=== PATIENT | male | born 1940 | race Caucasian/White ===

== ENCOUNTER 2017-09-15 03:07 | Observation (INO) | payer OTHER ==
--- NOTE | 2017-09-15 03:22 | EDPHY ---
H & P Stated Complaint: noisey breath when flat HPI/ROS: HPI CHIEF COMPLAINT: Fatigue, increasing shortness of breath, "noise in my chest" HISTORY OF PRESENT ILLNESS: This patient very pleasant 77-year-old male, significant past medical history for mitral valve regurgitation, he presents to the emergency room at 3:30 a.m. in the morning with shortness of breath. Increasing fatigue, and a noise in the right side of his chest. He describes it as raspy. He denies any chest pain or pleuritic pain. Denies productive cough. He states that he is an avid runner. He runs on average for miles and continue this at 11 minute pace however he states recently he has been having increasing time to run each mile. He gets fatigued and short of breath. Decided come the emergency room consisted around 11 o'clock this evening he was trying to sleep and he noticed an noise in the right side of his chest that he describes as a raspy noise and could not get to sleep. He felt short of breath. Stressed. No chest pain. Decided come the emergency room for evaluation. He denies any history of cardiovascular disease or stroke. Additionally the patient reports intermittent palpitations. Past Medical History: Mitral valve regurgitation Past Surgical History: No recent surgery Social History: Denies daily use drugs alcohol tobacco products. 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 Family History: Noncontributory ROS REVIEW OF SYSTEMS: A comprehensive 10 point review of systems is otherwise negative aside from elements mentioned in the history of present illness. Exam Constitutional appears well nontoxic triage nursing summary reviewed, vital signs reviewed, awake/alert. Eyes normal conjunctivae and sclera, EOMI, PERRLA. HENT normal inspection, atraumatic, moist mucus membranes, no epistaxis, neck supple/ no meningismus, no raccoon eyes. Respiratory clear to auscultation bilaterally, normal breath sounds, no respiratory distress, no wheezing. Cardiovascular significant murmur on exam rate normal, regular rhythm, no edema , distal pulses normal. Gastrointestinal soft, non-tender, no rebound, no guarding, normal bowel sounds, no distension, no pulsatile mass. Genitourinary no CVA tenderness. Musculoskeletal no midline vertebral tenderness, full range of motion, no calf swelling, no tenderness of extremities, no meningismus, good pulses, neurovascularly intact. Skin pink, warm, & dry, no rash, skin atraumatic. Neurologic awake, alert and oriented x 3, AAOx3, moves all 4 extremities equally, motor intact, sensory intact, CN II-XII intact, normal cerebellar, normal vision, normal speech. Psychiatric normal mood/affect. Heme/Lymph/Immune no lymphadenopathy. Differential Diagnosis: Includes but is not limited to in a particular order, pneumonia, pneumothorax, CHF, high cardiac output, acute coronary syndrome, pulmonary embolism. Medical Decision Making: Plan for this patient full cardiac catheterization technician, IV establishment, blood draw, fluid bolus, chest x-ray two view, EKG. Check troponin check D-dimer. Re-evaluation: EKG interpretation by me on record in [employer] system. Impression time of EKG 3:31 a.m., this is sinus rhythm rate of 68. PVC present. First-degree AV block with appear interval 228. Nonspecific intraventricular conduction delay. Q-waves noted lateral leads. Otherwise I do not appreciate acute ischemia. Rather large prominent T-waves in V4 V5 V6. ED x-ray chest two view reviewed. Cardiomegaly present. Prominent aortic knob. Haziness throughout both lung douglas. No old chest x-ray compare this to. D-dimer noted be negative. Troponin negative. BNP slightly elevated. No white count. Will proceed with CT angiogram of his chest to better visualize lung parenchyma. Rule out pulmonary embolism. I Think pulmonary embolism is unlikely given negative D-dimer however he does have shortness of breath, hypoxia, and abnormal chest x-ray. This patient CT scan angiogram chest with IV contrast shows no pulmonary embolism however does show rather large bilateral pleural effusions, interstitial pulmonary edema, cardiomegaly. This is concerning for acute decompensated heart failure. His IV fluids have been stopped. He received approximately 250 cc of normal saline here in the emergency room. I have ordered him 40 mg IV Lasix. The patient be admitted to the hospitalist service for decompensated heart failure. He will need an echocardiogram. Rather large murmur on exam. Updated patient is agreeable for this plan. Source: Patient - Personal History Current Tetanus/Diphtheria Vaccine: Yes Current Tetanus Diphtheria and Acellular Pertussis (TDAP): Yes - Medical/Surgical History Hx Asthma: No Hx Chronic Respiratory Disease: No Hx Diabetes: No Hx Cardiac Disease: Yes Hx Renal Disease: No Hx Cirrhosis: No Hx Alcoholism: No Hx HIV/AIDS: No Hx Splenectomy or Spleen Trauma: No Other PMH: aPPY. sigmoid resection for divertic - Social History Smoking Status: Never smoked Constitutional: Initial Vital Signs Temperature (C) 36.5 C 09/15/17 03:10 Heart Rate 72 09/15/17 03:10 Respiratory Rate 18 09/15/17 03:10 Blood Pressure 140/82 H 09/15/17 03:10 O2 Sat (%) 91 L 09/15/17 03:10 O2 Delivery Mode Nasal Cannula O2 (L/minute) 2 Allergies/Adverse Reactions: No Known Allergies Allergy (Unverified 09/15/17 03:10) Home Medications: Medication Instructions Recorded Aspirin EC [Aspirin EC 81 mg (*)] 81 mg PO DAILY 09/15/17 Carboxymethylcellulose 1% [Refresh 1 drop EACHEYE DAILY PRN 09/15/17 Celluvisc (*)] Cholecalciferol Vit D3 [Vitamin D3 2,000 units PO DAILY 09/15/17 2000 units tab (OTC)] Herbals/Supplements -Info Only 1 ea PO DAILY 09/15/17 Multivitamins [Multivitamin (*)] 1 each PO DAILY 09/15/17 Vitamin B Complex [B Complex] 1 each PO DAILY 09/15/17 Medical Decision Making - Diagnostics Imaging Results: Imaging Impressions Chest/Thorax CTA 09/15/17 04:34 Impression: 1. No evidence of pulmonary embolic disease. 2. Congestive heart failure/pending pulmonary edema. The study was performed as an emergency on-call case and discussed by telephone with Dr. Delacruz at 0540 hours. The final interpretation is concordant with the original communication. - Data Points Laboratory Results: Laboratory Results 09/15/17 03:40 09/15/17 03:40 09/15/17 09/15/17 03:40 03:40 Hemoglobin A1c 5.7 % % (4.0-6.0) Estim Average Glucose 117 mg/dL mg/dL (68-126) Triglycerides 76 mg/dL mg/dL (40-150) Cholesterol 174 mg/dL mg/dL (140-220) Cholesterol Risk Factr 0.6 (0.2-1.0) LDL Cholesterol, Calc 110 mg/dL H mg/dL (80-100) LDL Risk Factor 0.8 (0.2-1.0) VLDL Cholesterol 15 mg/dL mg/dL (8-25) Non-HDL Cholesterol 125 mg/dL mg/dL (90-129) HDL Cholesterol 49 mg/dL mg/dL (40-65) LDL/HDL Ratio 2.24 RATIO RATIO (1.00-3.64) Cholesterol/HDL Ratio 3.55 RATIO RATIO (1.00-4.97) TSH 9.870 uIU/mL H uIU/mL (0.465-4.680) Medications Given: Aspirin Buffered (Aspirin Ec) 81 mg PO DAILY CARMEN Stop: 03/14/18 08:59 Last Admin: 09/15/17 11:12 Dose: Not Given Cholecalciferol (Vitamin D) 2,000 units PO DAILY CARMEN Stop: 03/14/18 08:59 Last Admin: 09/15/17 11:23 Dose: Not Given Enoxaparin Sodium (Lovenox) 40 mg SC DAILY CARMEN Stop: 03/14/18 08:59 Last Admin: 09/15/17 11:12 Dose: Not Given Multivitamins (Tab-A-Iris) 1 each PO DAILY CARMEN Stop: 03/14/18 08:59 Last Admin: 09/15/17 11:23 Dose: Not Given Vitamin B Complex (Vitamin B Complex) 1 ea PO DAILY CARMEN Stop: 03/14/18 08:59 Last Admin: 09/15/17 11:23 Dose: Not Given Discontinued Medications Aspirin (Aspirin) 325 mg PO ONCE ONE Stop: 09/15/17 10:33 Last Admin: 09/15/17 11:11 Dose: 325 mg Diazepam (Valium) 5 mg PO ONCALL ONE Stop: 09/15/17 10:31 Last Admin: 09/15/17 11:11 Dose: 5 mg Diphenhydramine HCl (Benadryl) 25 mg PO ONCALL ONE Stop: 09/15/17 10:31 Last Admin: 09/15/17 11:11 Dose: 25 mg Famotidine (Pepcid) 20 mg PO ONCALL ONE Stop: 09/15/17 10:31 Last Admin: 09/15/17 11:11 Dose: 20 mg Furosemide (Lasix Injection) 40 mg IVP EDNOW ONE Stop: 09/15/17 05:37 Last Admin: 09/15/17 05:42 Dose: 40 mg Sodium Chloride (Ns) 1,000 mls @ 0 mls/hr IV EDNOW ONE; Wide Open PRN Reason: Protocol Stop: 09/15/17 03:35 Last Admin: 09/15/17 04:03 Dose: 250 mls Sodium Chloride (Ns) 1,000 mls @ 0 mls/hr IV ONCALL ONE PRN Reason: TKO Stop: 09/15/17 10:31 Last Admin: 09/15/17 16:25 Dose: Not Given Departure - Departure Disposition: [facility] Acute Clinical Impression: Heart failure Qualifiers: Heart failure type: unspecified heart failure type Heart failure chronicity: acute Qualified Code(s): I50.9 - Heart failure, unspecified Condition: Fair
--- NOTE | 2017-09-15 03:33 | CPEKG ---
Heart Rate: 68 RR Interval: 882 P-R Interval: 228 QRSD Interval: 110 QT Interval: 484 QTC Interval: 515 P [place]: 35 QRS [place]: -30 T Wave [place]: 90 EKG Severity - ABNORMAL ECG - EKG Impression: SINUS RHYTHM EKG Impression: VENTRICULAR PREMATURE COMPLEX EKG Impression: FIRST DEGREE AV BLOCK EKG Impression: NONSPECIFIC INTRAVENTRICULAR CONDUCTION DELAY Electronically Signed By: Brady Gorman 15-Sep-2017 12:12:29
[2017-09-15] MEDS ORDERED: NS 1,000 ML IV ONE ×2 (03:34→10:30)
[2017-09-15 03:53] LABS: % IMMATURE GRANULYOCYTES 0.4 % (0.0-1.1); ABSOLUTE IMMATURE GRANULOCYTES 0.03 10^3/uL (0.00-0.10); ADD DIFF? NO; ADD MORPH? NO; ADD SCAN? NO; ATYPICAL LYMPHOCYTE FLAG 0 (0-99); FRAGMENT RBC FLAG 0 (0-99); HEMATOCRIT 43.9 % (40.0-51.0); HEMOGLOBIN 15.4 g/dL (13.7-17.5); LEFT SHIFT FLG 0 (0-99); LIPEMIA HEMOLYSIS FLAG 90 (0-99); MEAN CELL HEMOGLOBIN 31.6 pg (27.9-34.1); MEAN CELL HEMOGLOBIN CONCENTR. 35.1 g/dL (32.4-36.7); MEAN PLATELET VOLUME 9.6 fL (8.7-11.7); PLATELET CLUMPS FLAG 0 (0-99); PLATELET COUNT 142 10^3/uL (150-400); RED BLOOD CELL COUNT 4.88 10^6/uL (4.40-6.38); RED CELL DISTRIBUTION WIDTH 14.1 % (11.5-15.2)
[2017-09-15 04:02] LABS: INR 1.2 (0.83-1.16); PROTIME(PATIENT) 15.2 SEC (12.0-15.0)
[2017-09-15 04:03] LABS: ALANINE AMINOTRANSFERASE 56 IU/L (21-72); ALBUMIN 3.6 g/dL (3.5-5.0); ALKALINE PHOSPHATASE 76 IU/L (38-126); ANION GAP 3 mEq/L (8-16); APTT 28.6 SEC (23.0-38.0); ASPARTATE AMINOTRANSFERASE 29 IU/L (17-59); BILIRUBIN,TOTAL 0.9 mg/dL (0.1-1.4); BILIRUBIN-CONJUGATED 0.1 mg/dL (0.0-0.5); BILIRUBIN-UNCONJUGATED 0.8 mg/dL (0.0-1.1); CALCIUM 9.3 mg/dL (8.5-10.4); CARBON DIOXIDE 23 mEq/l (22-31); CHLORIDE 106 mEq/L (97-110); CREATININE 1.1 mg/dL (0.7-1.3); GLOMERULAR FILTRATION RATE > 60; GLUCOSE 102 mg/dL (70-100); MAGNESIUM 2.1 mg/dL (1.6-2.3); POTASSIUM 4.5 mEq/L (3.5-5.2); SODIUM 132 mEq/L (134-144); TOTAL PROTEIN 6.2 g/dL (6.3-8.2)
[2017-09-15 04:15] LABS: TROPONIN I 0.018 ng/mL (0.000-0.034)
[2017-09-15] MEDS ORDERED: IOPAMIDOL (ISOVUE 370) 100 ML BTL IV ONE (04:39)
[2017-09-15] MEDS ORDERED: FUROSEMIDE 40 MG/4 ML VIAL IVP ONE (05:36)
[2017-09-15] MEDS ORDERED: ACETAMINOPHEN 325 MG TAB PO PRN (08:18)
[2017-09-15] MEDS ORDERED: ONDANSETRON DISINTEGRATING 4 MG TAB PO PRN (08:18)
[2017-09-15] MEDS ORDERED: ONDANSETRON 4 MG/2 ML VIAL IVP PRN (08:18)
[2017-09-15] MEDS ORDERED: CARBOXYMETHYLCELLULOSE 1% 0.4 ML DROPERETTE EACHEYE PRN (08:20)
[2017-09-15] MEDS ORDERED: Herbals/Supplements -Info Only PO SCH (09:00)
[2017-09-15 09:40] LABS: CHOLESTEROL 174 mg/dL (140-220); CHOLESTEROL/HDL RATIO 3.55 RATIO (1.00-4.97); HIGH DENSITY LIPOPROTEIN 49 mg/dL (40-65); LDL/HDL RATIO 2.24 RATIO (1.00-3.64); LOW DENSITY LIPOPROTEIN 110 mg/dL (80-100); NON-HIGH DENSITY LIPOPROTEIN 125 mg/dL (90-129); TRIGLYCERIDE 76 mg/dL (40-150); VERY LOW DENSITY LIPOPROTEINS 15 mg/dL (8-25)
[2017-09-15] MEDS ORDERED: diphenhydrAMINE 25 MG CAP PO ONE (10:30)
[2017-09-15] MEDS ORDERED: TEMAZEPAM 15 MG CAP PO PRN (10:30)
[2017-09-15] MEDS ORDERED: FAMOTIDINE 20 MG TAB PO ONE (10:30)
[2017-09-15] MEDS ORDERED: NITROGLYCERIN 0.4 MG BTL SL PRN (10:30)
[2017-09-15] MEDS ORDERED: DIAZEPAM 5 MG TAB PO ONE (10:30)
[2017-09-15] MEDS ORDERED: NS 1,000 ML IV SCH (10:30)
[2017-09-15] MEDS ORDERED: ASPIRIN 325 MG TAB PO ONE (10:32)
[2017-09-15 10:56] LABS: HEMOGLOBIN A1C 5.7 % (4.0-6.0)
[2017-09-15] MEDS: ENOXAPARIN 40 MG/0.4 ML SYR SC SCH (11:12)
[2017-09-15] MEDS: ASPIRIN EC 81 MG TAB PO SCH (11:12)
[2017-09-15] MEDS: VITAMIN B COMPLEX 1 EA CAP/TAB PO SCH (11:23)
[2017-09-15] MEDS: MULTIVITAMINS 1 EACH TAB PO SCH (11:23)
[2017-09-15] MEDS: CHOLECALCIFEROL VIT D3 2,000 UNITS TAB/CAP PO SCH (11:23)
--- NOTE | 2017-09-15 11:25 | CPEKG ---
Heart Rate: 63 RR Interval: 952 P-R Interval: 228 QRSD Interval: 108 QT Interval: 428 QTC Interval: 439 P [place]: 64 QRS [place]: -26 T Wave [place]: 67 EKG Severity - ABNORMAL ECG - EKG Impression: SINUS RHYTHM EKG Impression: FIRST DEGREE AV BLOCK EKG Impression: PROBABLE LEFT VENTRICULAR HYPERTROPHY Electronically Signed By: Brady Gorman 15-Sep-2017 12:12:40
[2017-09-15 12:22] LABS: COLOR YELLOW; LEUKOCYTE ESTERASE,URINE NEGATIVE (NEGATIVE); NITRITE,URINE NEGATIVE (NEGATIVE)
[2017-09-15] MEDS ORDERED: MIDAZOLAM 2 MG/2 ML VIAL ONE ×2 (12:24→13:41)
[2017-09-15] MEDS ORDERED: fentaNYL 100 MCG/2 ML INJ ONE ×2 (12:24→13:40)
--- NOTE | 2017-09-15 13:06 | PDPROPOC ---
Sedation Plan of Care Sedation Plan of Care: vital signs stable, mental status noted ASA Classification: ASA 2 Planned drugs: fentanyl, midazolam Mallampati Score: Class 2 Mallampati Reference Image: Patient passed 3-3-2 rule?: Yes
--- NOTE | 2017-09-15 13:06 | PDHPUP ---
History & Physical Update H&P update statement: This history and physical update is based on an assessment of the patient which was completed after admission or registration (within 24 hours), but prior to the surgery/procedure. H&P update: H&P reviewed & patient examined, no change in patient's condition since H&P completed
[2017-09-15] MEDS ORDERED: LIDOCAINE 1% 300 MG/30 ML SDV ONE (13:40)
[2017-09-15] MEDS ORDERED: IOPAMIDOL (ISOVUE-370) 150 ML BTL IV ONE (13:41)
[2017-09-15] MEDS ORDERED: VERAPAMIL 5 MG/2 ML VIAL ONE (13:47)
[2017-09-15] MEDS ORDERED: HEPARIN 10,000 UNIT/10 ML MDV ONE (13:47)
[2017-09-15] MEDS ORDERED: NITROGLYCERIN 1,500 MCG/15 ML VIAL MISC ONE (14:40)
--- NOTE | 2017-09-15 15:07 | PDGENHP ---
History and Physical - Chief Complaint Acute shortness of breath - History of Present Illness 77-year-old male presents with acute shortness of breath with associated fatigue and "noise "located in his right chest, characterized as raspy, with onset of symptoms around 3:30 a.m. on the morning of presentation, awakening him from sleep. The patient also notes recent palpitations as well as reduction in exercise tolerance, occurring several days ago, and duration ongoing during exertion. He otherwise denies chest pain, edema, or recent illness. History Information - Allergies/Home Medication List Allergies/Adverse Reactions: No Known Allergies Allergy (Unverified 09/15/17 03:10) Home Medications: Aspirin EC [Aspirin EC 81 mg (*)] 81 mg PO DAILY 09/15/17 [Last Taken 09/14/17] Carboxymethylcellulose 1% [Refresh Celluvisc (*)] 1 drop EACHEYE DAILY PRN 09/15 [Last Taken Unknown] Cholecalciferol Vit D3 [Vitamin D3 2000 units tab (OTC)] 2,000 units PO DAILY [Last Taken 09/14/17] Herbals/Supplements -Info Only 1 ea PO DAILY 09/15/17 [Last Taken Unknown] Multivitamins [Multivitamin (*)] 1 each PO DAILY 09/15/17 [Last Taken 09/14/17] Vitamin B Complex [B Complex] 1 each PO DAILY 09/15/17 [Last Taken 09/14/17] I have personally reviewed and updated: family history, medical history, social history, surgical history Past Medical History: Mitral valve regurgitation. Diverticulitis - Past Medical History hyperlipidemia - Surgical History Reports: appendectomy Additional surgical history: sigmoid colectomy - Social History Smoking Status: Never smoked Alcohol Use: Occasionally (no hx of withdraw) Drug Use: None Additional social history: avid runner Review of Systems Review of Systems: ROS: 10pt was reviewed & negative except for what was stated in HPI & below Cardiac: Reports: palpitations Respiratory: Reports: shortness of breath Physical Exam Physical Exam: Temp Pulse Resp BP Pulse Ox 36.4 C 67 14 109/69 92 09/15/17 12:05 09/15/17 12:05 09/15/17 12:05 09/15/17 12:05 09/15/17 12:05 Constitutional: no apparent distress, appears nourished, not in pain Eyes: PERRL, anicteric sclera, EOMI Ears, Nose, Mouth, Throat: moist mucous membranes, hearing normal, ears appear normal, no oral mucosal ulcers Cardiovascular: systolic murmur (III/ apex w/ increase on deep inspiration), other (intermittent irregular beats), No irregularly irregular, No tachycardia, No edema Respiratory: no respiratory distress, no rales or rhonchi, clear to auscultation Gastrointestinal: normoactive bowel sounds, soft, non-tender abdomen, no palpable masses Skin: warm, normal color, no rashes or abrasions, no fluctuance, no induration, No mottled Neurologic: AAOx3, sensation intact bilaterally, No weakness Psychiatric: interacting appropriately, not anxious, not encephalopathic, thought process linear Lab Data & Imaging Review 09/15/17 03:40 09/15/17 03:40 WBC 7.76 10^3/uL (3.80-9.50) 09/15/17 03:40 RBC 4.88 10^6/uL (4.40-6.38) 09/15/17 03:40 Hgb 15.4 g/dL (13.7-17.5) 09/15/17 03:40 Hct 43.9 % (40.0-51.0) 09/15/17 03:40 MCV 90.0 fL (81.5-99.8) 09/15/17 03:40 MCH 31.6 pg (27.9-34.1) 09/15/17 03:40 MCHC 35.1 g/dL (32.4-36.7) 09/15/17 03:40 RDW 14.1 % (11.5-15.2) 09/15/17 03:40 Plt Count 142 10^3/uL (150-400) L 09/15/17 03:40 MPV 9.6 fL (8.7-11.7) 09/15/17 03:40 Neut % (Auto) 68.9 % (39.3-74.2) 09/15/17 03:40 Lymph % (Auto) 18.4 % (15.0-45.0) 09/15/17 03:40 [place] % (Auto) 10.2 % (4.5-13.0) 09/15/17 03:40 Eos % (Auto) 1.8 % (0.6-7.6) 09/15/17 03:40 Baso % (Auto) 0.3 % (0.3-1.7) 09/15/17 03:40 Nucleat RBC Rel Count 0.0 % (0.0-0.2) 09/15/17 03:40 Absolute Neuts (auto) 5.35 10^3/uL (1.70-6.50) 09/15/17 03:40 Absolute Lymphs (auto) 1.43 10^3/uL (1.00-3.00) 09/15/17 03:40 Absolute Monos (auto) 0.79 10^3/uL (0.30-0.80) 09/15/17 03:40 Absolute Eos (auto) 0.14 10^3/uL (0.03-0.40) 09/15/17 03:40 Absolute Basos (auto) 0.02 10^3/uL (0.02-0.10) 09/15/17 03:40 Absolute Nucleated RBC 0.00 10^3/uL (0-0.01) 09/15/17 03:40 Immature Gran % 0.4 % (0.0-1.1) 09/15/17 03:40 Immature Gran # 0.03 10^3/uL (0.00-0.10) 09/15/17 03:40 PT 15.2 SEC (12.0-15.0) H 09/15/17 03:40 INR 1.20 (0.83-1.16) H 09/15/17 03:40 APTT 28.6 SEC (23.0-38.0) 09/15/17 03:40 D-Dimer 0.31 ug/mLFEU (0.00-0.50) 09/15/17 03:40 Sodium 132 mEq/L (134-144) L 09/15/17 03:40 Potassium 4.5 mEq/L (3.5-5.2) 09/15/17 03:40 Chloride 106 mEq/L (97-110) 09/15/17 03:40 Carbon Dioxide 23 mEq/l (22-31) 09/15/17 03:40 Anion Gap 3 mEq/L (8-16) L 09/15/17 03:40 BUN 24 mg/dL (7-23) H 09/15/17 03:40 Creatinine 1.1 mg/dL (0.7-1.3) 09/15/17 03:40 Estimated GFR > 60 09/15/17 03:40 Glucose 102 mg/dL (70-100) H 09/15/17 03:40 Hemoglobin A1c 5.7 % (4.0-6.0) 09/15/17 03:40 Estim Average Glucose 117 mg/dL (68-126) 09/15/17 03:40 Calcium 9.3 mg/dL (8.5-10.4) 09/15/17 03:40 Magnesium 2.1 mg/dL (1.6-2.3) 09/15/17 03:40 Total Bilirubin 0.9 mg/dL (0.1-1.4) 09/15/17 03:40 Conjugated Bilirubin 0.1 mg/dL (0.0-0.5) 09/15/17 03:40 Unconjugated Bilirubin 0.8 mg/dL (0.0-1.1) 09/15/17 03:40 AST 29 IU/L (17-59) 09/15/17 03:40 ALT 56 IU/L (21-72) 09/15/17 03:40 Alkaline Phosphatase 76 IU/L (38-126) 09/15/17 03:40 Troponin I 0.018 ng/mL (0.000-0.034) 09/15/17 03:40 NT-Pro-B Natriuret Pep 705 pg/mL (0-450) H 09/15/17 03:40 Total Protein 6.2 g/dL (6.3-8.2) L 09/15/17 03:40 Albumin 3.6 g/dL (3.5-5.0) 09/15/17 03:40 Triglycerides 76 mg/dL (40-150) 09/15/17 03:40 Cholesterol 174 mg/dL (140-220) 09/15/17 03:40 Cholesterol Risk Factr 0.6 (0.2-1.0) 09/15/17 03:40 LDL Cholesterol, Calc 110 mg/dL (80-100) H 09/15/17 03:40 LDL Risk Factor 0.8 (0.2-1.0) 09/15/17 03:40 VLDL Cholesterol 15 mg/dL (8-25) 09/15/17 03:40 Non-HDL Cholesterol 125 mg/dL (90-129) 09/15/17 03:40 HDL Cholesterol 49 mg/dL (40-65) 09/15/17 03:40 LDL/HDL Ratio 2.24 RATIO (1.00-3.64) 09/15/17 03:40 Cholesterol/HDL Ratio 3.55 RATIO (1.00-4.97) 09/15/17 03:40 Lipase 313 IU/L (23-300) H 09/15/17 03:40 TSH 9.870 uIU/mL (0.465-4.680) H 09/15/17 03:40 Urine Color YELLOW 09/15/17 11:35 Urine Appearance CLEAR 09/15/17 11:35 Urine pH 5.0 (5.0-7.5) 09/15/17 11:35 Ur Specific [place] 1.014 (1.002-1.030) 09/15/17 11:35 Urine Protein NEGATIVE (NEGATIVE) 09/15/17 11:35 Urine Ketones NEGATIVE (NEGATIVE) 09/15/17 11:35 Urine Blood NEGATIVE (NEGATIVE) 09/15/17 11:35 Urine Nitrate NEGATIVE (NEGATIVE) 09/15/17 11:35 Urine Bilirubin NEGATIVE (NEGATIVE) 09/15/17 11:35 Urine Urobilinogen NEGATIVE EU (0.2-1.0) 09/15/17 11:35 Ur Leukocyte Esterase NEGATIVE (NEGATIVE) 09/15/17 11:35 Urine Glucose NEGATIVE (NEGATIVE) 09/15/17 11:35 Visualized and Interpreted Chest x-ray results: Yes Chest X-Ray results: other (Interstitial lung markings bilaterally with effusions) Visualized and Interpreted EKG results: Yes EKG Interpretation: Positive for: other (Intraventricular conduction delay with normal sinus mechanism and PVCs) Assessment & Plan Assessment: 77-year-old male presenting with acute diastolic CHF exacerbation in the setting of mitral valve regurgitation Plan: 1. Acute diastolic congestive heart failure exacerbation. Acute, new problem this provider, further workup indicated. Evidenced by bilateral interstitial markings and pleural effusions with BNP of 700, most likely secondary to mitral valvular abnormalities -discussed with Dr. Grace Segal, she has read the patient's initial echocardiogram, she recommends transesophageal echocardiogram to further define patient's leaflet morphology -cardiothoracic surgery consultation to follow -continue dosing Lasix, after load reduction with HEATHER-inhibitor per Dr. Segal, start in AM -continue monitoring serum sodium level and potassium, creatinine 2. Hyponatremia. Acute, secondary to CHF exacerbation, continue monitor while diuresing 3. Mitral valve regurgitation. Getting transesophageal echocardiogram to further characterize -severe, getting CT surg eval -afterload reduction -cardiac cath w/o obstructive CAD 4. Hyperlipidemia. Reviewed outside records including 06/03/2009 LDL level of 146 , will require coronary artery risk stratification prior to undergoing surgery Diet. Regular Prophylaxis. High risk patient, Lovenox 40 Code. Full Disposition. Anticipated discharge is 09/16, but the patient may require inpatient admission for cardiothoracic surgery, pending workup as outlined above.
[2017-09-15] MEDS ORDERED: ATROPINE SULFATE 1 MG/10 ML SYR IVP PRN (15:33)
--- NOTE | 2017-09-15 15:33 | PDDXCAT ---
Diagnostic Cath Note - . Date: 09/15/17 In House Cra: Luzma Indication: other (severe MR; pre op cor angiogram) - Procedure Access: right wrist Procedure: left heart catheterization, coronary angiography, left ventriculogram - Materials Left Heart Cath size: 5F Left Heart Cath materials: JL4.0, JR4.0 - Findings-Left Heart Catheterization LM: normal LAD: minimal proximal plaque. 2 large Diagonals without flow limiting disease LCX: large branching OM; no sig CAD RCA: dominant. No sig CAD EDP: 16 LVEF: 55; severe MR with complete opacification of severely dilated LA Wall motion: normal - Findings-Right Heart Catheterization AO: 108/60 Complications: none Estimated blood loss: <50ml Closure method: TR Band Assessment: No significant CAD. Severe MR Plan: CT surgery consultation Patient Problems: Problems Problem Status Onset chronic disease mgmt/transitional care Acute Heart failure Acute
--- NOTE | 2017-09-15 17:08 | GCON ---
[f rep st] CONSULTATION CARDIOLOGY CONSULT DATE OF CONSULTATION: 09/15/2017 CHIEF COMPLAINT: Shortness of breath. HISTORY OF PRESENT ILLNESS: We were asked by Dr. Nuñez to visit with the patient. The patient is a pleasant 77-year-old male with a known history of mitral regurgitation. He tells me he had an echoc ardiogram, performed for a cardiac murmur heard on exam back in June in the [facility]. We do n ot have this report. He was told that his mitral valve was regurgitant but not quite ready for surgi monroe intervention. Otherwise, he has no significant past medical history. He presented to the ER yes terday evening with 2 weeks of exertional intolerance and then a sensation of raspiness and mild shor tness of breath when lying on his right side. He has also had some palpitations at rest, but no sync ope. He has not had lower extremity edema or angina. BNP is slightly elevated and chest CT showed v olume overload. He was treated with IV Lasix and admitted for further evaluation. He had a signific ant murmur on exam. Today he reports feeling fairly well, again reiterating that it has really just been a decline in his ability to run over the past several days that has worried him. REVIEW OF SYSTEMS: A full 10-point review of systems was performed and is otherwise negative except that which is outlined in the history of present illness. ALLERGIES: No known drug allergies. PAST MEDICAL HISTORY: Mitral regurgitation. PAST SURGICAL HISTORY: Appendectomy and sigmoid resection for diverticulitis. OUTPATIENT MEDICATIONS: Aspirin 81 mg daily and vitamin supplements. 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 He does not smoke cigarettes. He drin ks alcohol in moderation. He is . FAMILY HISTORY: Unknown on his father's side. His grandmother of a stroke. PHYSICAL EXAM: VITAL SIGNS: Blood pressure is 143/78, heart rate 66, oxygen saturation 92% on room air. He is afebrile. Respiratory rate is 18. GENERAL: Well-appearing older male in no acute distr ess. HEENT: Sclerae are clear and free of jaundice. Mucous membranes are moist. CARDIOVASCULAR: JVP is approximately 12 cm of water. Regular rate and rhythm with a harsh holosystolic murmur heard throughout the precordium. The PMI is prominent and slightly laterally displaced. There is no S3 or S4. LUNGS: Clear to auscultation bilaterally without wheezes, rhonchi, or rales. ABDOMEN: Soft, nontender, nondistended without bruits, masses, or hepatosplenomegaly. EXTREMITIES: Warm and well p erfused without cyanosis, clubbing, or edema. NEURO: Alert and oriented x3 without gross focal neur ological deficits. Appropriate mood and affect. LABORATORY DATA: CBC is essentially normal except for platelets of 142. D-dimer is negative. INR i s 1.2. Sodium 132, potassium 4.5, chloride 23, BUN 24, creatinine 1.1, glucose 102. Hemoglobin A1c is pending. Calcium 9.3, magnesium 2.1. LFTs are normal. Troponin is negative x1. BNP is 705, tot al protein 62. LDL cholesterol 110. Lipase is 313. TSH 9.87. EKG reviewed by me: Normal sinus rhythm, PVC. Nonspecific intraventricular conduction delay. First -degree AV block. Bedside echo preliminarily: Dilated LV. Normal LV systolic function. Severe mitral regurgitation t hat appears to be related to posterior leaflet flail. Chest x-ray reviewed by me: Cardiomegaly, diffuse ground-glass attenuation. Small bilateral pleural effusions. Chest CT: No pulmonary embolism. Findings consistent with congestive heart failure. ASSESSMENT AND PLAN: A 77-year-old male with severe mitral regurgitation that is symptomatic. This appears to be due to flail posterior mitral valve leaflet. 1. Severe mitral regurgitation: He has had a decrease in exercise tolerance, his left ventricular i s enlarged. He does require surgical repair or replacement in the near future. I had a long discuss ion with him about the preparation for that, including transesophageal echocardiogram and left heart catheterization. This will be scheduled for later today. He is willing to proceed. He would like t o speak with our surgeon, Dr. Humphrey Sage. However, he is also interested in a 2nd opinion at the [facility]. He has received 1 dose of Lasix. I would hold on further diuretics until after his angiogram. I would also start an angiotensin-converting enzyme inhibitor tomorrow if his renal funct ion is stable given his mild hypertension and the need for afterload reduction in the setting of melissa re mitral regurgitation. 2. Elevated TSH. This can be followed up as an outpatient. Thank you for allowing us to participate in the patient's care. We will follow with you. /[id number]/[id number]
--- NOTE | 2017-09-15 17:17 | ECHO ---
[email or web address] [address] [address] Main: [phone] Fax: Transthoracic Echocardiogram Name: CHELE FUNES MR#: [id number] Study Date: 09/15/2017 Study Time: 09:14 AM Date of : 1940 Age: 77 year(s) Height: ( ) Weight: ( ) BSA: Gender: Male Examination: Echo Indication: Eval EF Image Quality: Contrast: Requested by: Brady Nuñez BP: 143 mmHg/78 mmHg Heart Rate: Rhythm: Indication: Eval EF Procedure Staff Informatics Application Analyst: Omaira Rowell Reading Physician: Grace Segal Requesting Provider: Conclusions: Moderately to severely dilated left ventricle. Normal global systolic LV function. The ejection fraction is estimated to be 60-65 %. Normal size right ventricle. The left atrium is severely dilated. Severe mitral valve regurgitation is present. The posterior mitral leaflet is prolapsing and appears to be flail.. Mild tricuspid regurgitation is present. The pulmonary artery pressure is mildly increased. RVSP is 46mmHG. . There is no previous echocardiogram for comparison. Measurements: Chambers Valvular Assessment AV/MV Valvular Assessment TV/PV Normal Normal Normal Name Value Range Name Value Range Name Value Range EF Range: 60-65 % Continued Measurements: Findings: Left Ventricle: Moderately to severely dilated left ventricle. Normal global systolic LV function. The ejection fraction is estimated to be 60-65 %. Right Ventricle: Normal size right ventricle. Left Atrium: The left atrium is severely dilated. Patient: CHELE FUNES Study Date: 09/15/2017 Page 1 of 2 09:14 AM Right Atrium: The right atrium is normal in size. Mitral Valve: Severe mitral valve regurgitation is present. The posterior mitral leaflet is prolapsing and appears to be flail.. Aortic Valve: The aortic valve is normal in appearance and function. Tricuspid Valve: The tricuspid valve is normal in appearance and function. Mild tricuspid regurgitation is present. The pulmonary artery pressure is mildly increased. RVSP is 46mmHG. . Pulmonic Valve: The pulmonic valve is normal in appearance and function. Trivial pulmonic valve regurgitation. Aorta: The aorta is normal. Pericardium: No pericardial effusion. (No Signature Object) Patient: CHELE FUNES Study Date: 09/15/2017 Page 2 of 2 09:14 AM [id number]
--- NOTE | 2017-09-15 17:19 | ECHO ---
[email or web address] [address] [address] Main: [phone] Fax: Transesophageal Echocardiography Name: CHELE FUNES MR#: [id number] Study Date: 09/15/2017 Study Time: 01:43 PM Date of : 1940 Age: 77 year(s) Height: ( ) Weight: ( ) BSA: Gender: Male Examination: MONICA Indication: Image Quality: Contrast: Requested by: Grace Segal Heart Rate: Rhythm: BP: / Procedure Staff Obstetric Assistant: Omaira Pennington Physician: Grace Segal Requesting Provider: MONICA Exam Details Measurements: Chambers Valvular Assessment AV/MV Valvular Assessment TV/PV Normal Normal Normal Name Value Range Name Value Range Name Value Range Additional Measurements: Findings: Left Ventricle: Normal global systolic LV function. Left Atrium: An agitated saline study was performed and was negative for intracardiac shunting. Left Atrial Appendage: No thrombus in left appendage. Mitral Valve: There is flow reversal in the pulmonary veins consistent with significant mitral regurgitation. There is a flail leaflet of the posterior mitral leaflet, P2 segment. Severe mitral regurgitation anteriorly directed from the posterior mitral leaflet prolapse. Aortic Valve: The aortic valve is tri-leaflet. There is no aortic valve regurgitation. Tricuspid Valve: The tricuspid valve appears normal. Patient: CHELE FUNES Study Date: 09/15/2017 Page 1 of 2 01:43 PM l1n (No Signature Object) Patient: CHELE FUNES Study Date: 09/15/2017 Page 2 of 2 01:43 PM [id number]
[2017-09-16 05:07] LABS: ANION GAP 12 mEq/L (8-16); CALCIUM 8.5 mg/dL (8.5-10.4); CARBON DIOXIDE 27 mEq/l (22-31); CHLORIDE 104 mEq/L (97-110); CREATININE 1.3 mg/dL (0.7-1.3); GLOMERULAR FILTRATION RATE 54; GLUCOSE 85 mg/dL (70-100); MAGNESIUM 2.1 mg/dL (1.6-2.3); POTASSIUM 4.2 mEq/L (3.5-5.2); SODIUM 143 mEq/L (134-144)
[2017-09-16 05:57] VITALS: O2SAT 95
[2017-09-16 08:04] VITALS: BP 114/73; PULSE 64; RESP 13; TEMP 97.4
[2017-09-16] MEDS ORDERED: FUROSEMIDE 40 MG TAB PO SCH (09:00)
[2017-09-16] MEDS ORDERED: LISINOPRIL 5 MG TAB PO SCH (09:00)
--- NOTE | 2017-09-16 09:43 | ASMTCMCOM ---
CM Note CM Note Notes: 09/16/2017 Case Management Note Met w/ pt. AMANDA signed. Pt recently retired in May 2017. Reports enjoying custodial. Lives with . Daughter and grandchildren in the area. Micki [phone]. No Case Management d/c needs identified d/t pt marital status, age and activity levels prior to admission. No therapy evals ordered. Case Management d/c poc: Home independent when medically stable with follow up as directed. Case Management available if needs change. Date Signed: 09/16/2017 09:42 AM Electronically Signed By:Violette Patel RN
[2017-09-16] MEDS: ASPIRIN EC 81 MG TAB PO SCH (09:50)
[2017-09-16] MEDS: VITAMIN B COMPLEX 1 EA CAP/TAB PO SCH (09:50)
[2017-09-16] MEDS: CHOLECALCIFEROL VIT D3 2,000 UNITS TAB/CAP PO SCH (09:50)
[2017-09-16] MEDS: MULTIVITAMINS 1 EACH TAB PO SCH (09:51)
[2017-09-16] MEDS: ENOXAPARIN 40 MG/0.4 ML SYR SC SCH (09:52)
--- NOTE | 2017-09-16 10:12 | PDCARPN ---
Cardiology Progress Note Assessment/Plan: Assessment/plan: A 77-year-old male with a known history of mitral regurgitation but otherwise no significant medical problems. He was admitted with heart failure. Workup has demonstrated severe mitral regurgitation related to a flail segment of his posterior mitral valve (P2). He has non flow- limiting coronary disease in his LAD. Dyspnea has improved after some Lasix. 1. Severe mitral regurgitation related to flail P2: Dr. Sage will see the patient this morning. He will require surgical mitral valve repair without CABG. I have started low-dose Lasix as well as low-dose lisinopril for afterload reduction and his sleep AHF. Likely surgery will be in the next week or so. 2. Elevated TSH: Follow-up as outpatient. Patient needs a new primary care provider. Patient stable for discharge. Follow-up with CT surgery. 09/16/17 10:37 Subjective: Sarmad denies dyspnea, PND orthopnea. No chest pain. No throat pain post MONICA. Occasional palpitations. Reviewed/Discussed With: family, hospitalist (Dr. Sage and Dr. Nuñez), other Objective: Vital Signs (8 Hrs) Temp Pulse Resp BP Pulse Ox 09/16/17 08:04 36.3 C 64 13 114/73 95 09/16/17 04:00 36.8 C 63 16 116/68 95 Intake/Output (24 Hrs) 09/15/17 09/16/17 09/17/17 05:59 05:59 05:59 Intake Total 650 Output Total 400 Balance 250 Intake: Oral (ml) 400 IV Infused (ml) 250 Output: Urine (ml) 400 Toilet 400 Other: Weight 75.6 kg Number of Voids 3 Toilet 1 Result Diagrams: 09/15/17 03:40 09/16/17 04:25 Telemetry: Sinus rhythm with PVCs ICD10 Worksheet Patient Problems: Problems Problem Status Onset chronic disease mgmt/transitional care Acute Heart failure Acute
[2017-09-16] MEDS ORDERED: FLU VACC QS 2017-18 (3YR+)/PF 0.5 ML SYR (FLUARIX QUAD) IM ONE (12:47)
--- NOTE | 2017-09-16 12:52 | GCON ---
[f rep st] CONSULTATION DATE OF CONSULTATION: 09/16/2017 REFERRING PHYSICIAN: Grace Segal MD IMPRESSION: 1. Severe mitral regurgitation with evidence of ruptured P2 chordae, marked left atrial enlargement and diminished left ventricular function, symptomatic class 2. 2. Status post appendectomy and sigmoid colon resection. RECOMMENDATIONS: This gentleman should undergo elective repair of his mitral valve. His cath reveal ed a 40% LAD lesion which I believe could be left alone. We will review with Interventional Cardiolo gy for their opinion as well. The patient prefers a limited incision, minimally invasive right thora cotomy repair, with femoral artery and vein cannulation. We will obliterate the left atrial appendag e at the time of surgery as well. Prior to surgery, we will perform a 48 hour Holter monitor to rule out any atrial fibrillation. He does have a history of multiple PVCs and has felt irregular heart rh ythms in the past, although no AFib has been documented. I advised him that, should we identify atri al fibrillation, we should do a Maze procedure as well. Overall risk is 1%. Repairability, in my op inion, is approximately 95% based on echo findings. We did discuss options should the repair not be suitable with a valve replacement utilizing bioprosthesis. He is agreeable to that approach. He was offered a repeat visit in the office and will be contacted by my office Monday. CHIEF COMPLAINT: Shortness of breath. 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 " He then presented here with worsening activity level, fatigue, and some shortness of breath with e xertion. He was found to be in class 2 heart failure. He was diuresed, underwent echocardiogram whi ch revealed severe mitral insufficiency with marked left atrial, left ventricle enlargement and filli ng of his pulmonary veins. Cath revealed a 40% LAD lesion. He was referred for surgical interventio n. No atrial fib was identified in the hospital. PAST MEDICAL HISTORY: As stated. REVIEW OF SYSTEMS: A 10-point review was performed and otherwise negative except for chief complaint . PAST SURGICAL HISTORY: Appendectomy and sigmoid resection. MEDICATIONS: On admission were aspirin. Current medications are aspirin, carboxymethylcellulose eye drops, vitamin D, Lasix 20 mg daily, lisinopril 2.5 mg daily, multivitamins, Restoril as well as felipe min B complex. SOCIAL HISTORY: He does not smoke. He is retired. He does drink wine several days a week, 2 glasse s at a time. FAMILY HISTORY: Noncontributory. PHYSICAL EXAMINATION: GENERAL: This is a well-developed, elderly gentleman, very alert, accompanied by his , in no apparent distress. VITAL SIGNS: Blood pressure 114/73, pulse 64, respirations 13 , O2 saturation 95% on room air. Chest x-ray reveals bilateral pulmonary infiltration consistent wit h minimal CHF on admission. CAT scan shows no embolic disease and evidence of congestive heart failu re, as well as cardiomegaly on my review. HEENT: Normocephalic. MARIANN, EOMI. Teeth are in good re pair. NECK: Without bruits. HEART: Rate is regular without murmur, S3 or S4. He does have a murmu r of mitral regurg across the precordium. LUNGS: Clear. ABDOMEN: Soft, nontender. Bowel sounds a re active. RECTAL AND GENITAL: Deferred. EXTREMITIES: Pedal pulses are 2+ without edema or varico sities. Please see cath and echo reports for details. /[id number]/MODL
--- NOTE | 2017-09-16 16:40 | PDDCSUM ---
Discharge Summary Discharge Summary: DISCHARGE SUMMARY FOLLOW-UP ITEMS: Outpatient creatinine BUN and lytes this week Establish care with primary care provider and reassess TSH level DATE OF ADMISSION: 09/15/2017 DATE OF DISCHARGE: 09/16/2017 DISCHARGE DIAGNOSES: 1. Severe mitral regurgitation 2. Acute diastolic congestive heart failure exacerbation 3. Elevated TSH level CONSULTATIONS: Cardiology and cardiothoracic surgery PROCEDURES / IMAGING: Transesophageal echocardiogram demonstrating a flail P2 of the mitral valve with severe regurgitation Cardiac catheterization demonstrating no flow-limiting stenosis Carotid ultrasounds performed prior to discharge CHIEF COMPLAINT: Acute chest congestion SUBJECTIVE: Patient is feeling well at time of discharge, he is ambulating without any exertional symptoms PHYSICAL EXAM ON DISCHARGE: Systolic blood pressure 110, heart rate 60, afebrile overnight, satting well on room air, net even light stay, lungs are clear to auscultation bilaterally, heart rate is regular with regular rhythm, 3/6 systolic murmur at the apex, no lower extremity edema LABS ON DISCHARGE: Potassium 4.2, serum sodium 143, creatinine 1.3, BUN 23, TSH 9.9, LDL 110, hemoglobin A1c 5.7% HOSPITAL COURSE BY PROBLEM: The patient presented with acute chest congestion, recent exertional shortness of breath and reduction in exercise tolerance, secondary to severe mitral regurgitation with resultant acute diastolic congestive heart failure exacerbation, evidenced by interstitial edema on chest x-ray as well as elevated BNP. This was also very to a flail P2 of the mitral valve, and this requires surgical repair without CABG. The patient was seen in consultation by Dr. Grace Segal from Cardiology, Dr. Humphrey Sage from Cardiothoracic surgery, and was recommended that the patient initiated on low-dose Lasix as well as low- dose lisinopril for afterload reduction, with outpatient follow-up and then scheduled mitral valve replacement surgery. It was also noted that the patient had an elevated TSH level, it is unclear whether this is clinically significant in the setting of his recent reduction in exercise tolerance. I recommended the patient establish care with a primary care provider tabs TSH level recheck, consider Synthroid therapy, and the patient can be directed to do so after his follow-up appointment with Dr. Grace Segal next week. DISCHARGE MEDICATIONS: Please see official discharge medication reconciliation sheet in chart , lisinopril 2.5 mg daily, Lasix 40 mg daily. DISCHARGE INSTRUCTIONS: Please have outpatient labs this week, and follow up with Dr. Segal thereafter.
[2017-09-17] MEDS ORDERED: FUROSEMIDE 20 MG TAB PO SCH (09:00)
[2017-09-17] MEDS ORDERED: LISINOPRIL 2.5 MG TAB PO SCH (09:00)
== END 2017-09-16 14:30 | disposition home or self-care (01) ==
LOC: INTOOBSV 05:59 → F2W 06:52
PROVIDERS: ADMIT Family Medicine; ATTEND Internal Medicine
DX: I50.31 Acute diastolic (congestive) heart failure (principal); I51.1 Rupture of chordae tendineae, not elsewhere classified; I34.0 Nonrheumatic mitral (valve) insufficiency; E87.0 Hyperosmolality and hypernatremia; E78.5 Hyperlipidemia, unspecified; Z23 Encounter for immunization
CPT/HCPCS: 71020; 71275; 90471; 93005; 93306; 93312; 93458; 93880; G0378; 96374; G0008; J1644; J1650; J1940; J2250; J3010; Q9967

== ENCOUNTER → 2017-09-20 | Outpatient (CLI) | payer OTHER | LOC: BHFA 13:00 | PROVIDERS: ATTEND Thoracic Surgery (Cardiothoracic Vascular Surgery) | DX: I48.91 Unspecified atrial fibrillation (principal) ==

== ENCOUNTER 2017-10-02 05:48 | Inpatient (IN) | payer OTHER ==
[2017-10-02] MEDS ORDERED: AMINOCAPROIC ACID 5 GM/20 ML VIAL IV ONE (06:00)
[2017-10-02] MEDS ORDERED: SODIUM BICARBONATE 20 MEQ, LIDOCAINE 1% 10 ML in NORMOSOL-R 1,000 ML MISC ONE (06:00)
[2017-10-02] MEDS ORDERED: CITRATE DEXTROSE SOLN 500 ML BAG MISC ONE (06:00)
[2017-10-02] MEDS ORDERED: INSULIN REGULAR HUMAN 100 UNIT in NS 100 ML IV ONE ×2 (06:00→11:00)
[2017-10-02] MEDS ORDERED: MUPIROCIN 2% 22 GM OINT NS ONE (06:00)
[2017-10-02] MEDS ORDERED: niCARdipine/NACL 200 ML IV SCH (06:00)
[2017-10-02] MEDS ORDERED: PHENYLEPHRINE HCL 50 MG in NS 250 ML IV ONE (06:00)
[2017-10-02] MEDS ORDERED: ceFAZolin 2 GM/SWFI 2 GM/20 ML SYR IVP ONE (06:00)
[2017-10-02] MEDS ORDERED: NOREPINEPHRINE BITARTRATE 16 MG in NS 250 ML IV ONE (06:00)
[2017-10-02] MEDS ORDERED: MANNITOL 25% 12.5 GM/50 ML VIAL IVP ONE (06:00)
[2017-10-02] MEDS ORDERED: LIDOCAINE 1% 2 ML INJ ONE (06:01)
[2017-10-02] MEDS ORDERED: LIDOCAINE 1% 2 ML INJ ID PRN (06:09)
[2017-10-02] MEDS ORDERED: LR 1,000 ML IV ONE (06:09)
[2017-10-02] MEDS ORDERED: PROTAMINE SULFATE 50 MG/5 ML VIAL IVP ONE (06:33)
[2017-10-02] MEDS ORDERED: CALCIUM CHLORIDE 1 GM/10 ML INJ ONE ×3 (06:34→06:36)
[2017-10-02] MEDS ORDERED: MILRINONE/DEXTROSE/100 ML BAG IV ONE (06:34)
[2017-10-02] MEDS ORDERED: AMINOCAPROIC ACID 5 GM/20 ML VIAL ONE ×2 (06:34→06:37)
[2017-10-02] MEDS ORDERED: POTASSIUM Cl (KCl) 20 MEQ/50 ML BAG IV ONE (06:34)
[2017-10-02] MEDS ORDERED: NA BICARBONATE 50 MEQ/50 ML VIAL ONE (06:34)
[2017-10-02] MEDS ORDERED: DOPamine/DEXTROSE/250 ML BAG IV ONE (06:34)
[2017-10-02] MEDS ORDERED: niCARdipine/NACL/200 ML BAG IV ONE (06:35)
[2017-10-02] MEDS ORDERED: AMIODARONE HCL 150 MG/3 ML VIAL ONE ×2 (06:35→06:37)
[2017-10-02] MEDS ORDERED: ADENOSINE 6 MG/2 ML VIAL ONE (06:35)
[2017-10-02] MEDS ORDERED: ALBUMIN 5% 250 ML BOTTLE IV ONE ×2 (06:36→10:11)
[2017-10-02] MEDS ORDERED: HEPARIN 10,000 UNIT/10 ML MDV ONE ×2 (06:36→06:38)
[2017-10-02] MEDS ORDERED: ceFAZolin 1 GM VIAL ONE (06:36)
[2017-10-02] MEDS ORDERED: MAGNESIUM SULFATE 1 GM/2 ML VIAL ONE (06:37)
[2017-10-02] MEDS ORDERED: methylPREDNISolone SOD SUCC 1 GM/8 ML VIAL ONE (06:37)
[2017-10-02] MEDS ORDERED: LIDOCAINE 2% 100 MG/5 ML SYR ONE (06:37)
[2017-10-02] MEDS ORDERED: CITRATE DEXTROSE SOLN 500 ML BAG ONE (06:37)
[2017-10-02] MEDS ORDERED: MIDAZOLAM 2 MG/2 ML VIAL IVP ONE (06:47)
--- NOTE | 2017-10-02 06:47 | PDANEPAE ---
ANE History of Present Illness here for MVR ANE Past Medical History - Cardiovascular History Hx Hypertension: Yes Hx Arrhythmias: No Hx Chest Pain: No Hx Coronary Artery / Peripheral Vascular Disease: No Hx CHF / Valvular Disease: Yes Hx Palpitations: No Cardiovascular History Comment: MVR. CHF - Pulmonary History Hx COPD: No Hx Asthma/Reactive Airway Disease: No Hx Recent Upper Respiratory Infection: No Hx Oxygen in Use at Home: No Hx Sleep Apnea: No Sleep Apnea Screening Result - Last Documented: Positive Pulmonary History Comment: oneal triggers - Neurologic History Hx Cerebrovascular Accident: No Hx Seizures: No Hx Dementia: No - Endocrine History Hx Diabetes: No Hypothyroid: No Hyperthyroid: No Obesity: no - Renal History Hx Renal Disorders: No - Liver History Hx Hepatic Disorders: No - Neurological & Psychiatric Hx Hx Neurological and Psychiatric Disorders: No Neurological / Psychiatric History Comment: hx of depression 1973 - Cancer History Hx Cancer: No - Congenital Disorder History Hx Congenital Disorders: No - GI History Hx Gastrointestinal Disorders: Yes Gastrointestinal History Comment: hx of sigmoid resection 1991. hx of diverticulitis - Other Health History Other Health History: wears glasses - Chronic Pain History Chronic Pain: No - Surgical History Prior Surgeries: appy. sigmoid resection for diverticulitis ANE Review of Systems Review of systems is: negative Review of Systems: - Exercise capacity Exercise capacity: <4 METS METS (RN): 3 METS ANE Patient History - Allergies Allergies/Adverse Reactions: No Known Allergies Allergy (Verified 09/22/17 11:23) - Home Medications Home medications: home medication list seen and reviewed Home Medications: Aspirin EC [Aspirin EC 81 mg (*)] 81 mg PO DAILY 09/15/17 [Last Taken 09/25/17] Carboxymethylcellulose 1% [Refresh Celluvisc (*)] 1 drop EACHEYE DAILY PRN 09/15 [Last Taken Unknown] Cholecalciferol Vit D3 [Vitamin D3 2000 units tab (OTC)] 2,000 units PO DAILY [Last Taken 09/29/17] Herbals/Supplements -Info Only 1 ea PO DAILY 09/15/17 [Last Taken 09/29/17] Multivitamins [Multivitamin (*)] 1 each PO DAILY 09/15/17 [Last Taken 09/29/17] Vitamin B Complex [B Complex] 1 each PO DAILY 09/15/17 [Last Taken 09/29/17] - NPO status NPO Status: no food or drink >8 hours NPO Since - Liquids (Date): 10/01/17 NPO Since - Liquids (Time): 22:00 NPO Since - Solids (Date): 10/01/17 NPO Since - Solids (Time): 22:00 - Anes Hx Anes Hx: no prior problems - Smoking Hx Smoking Status: Never smoked - Family Anes Hx Family Hx Anesthesia Complications: none ANE Labs/Vital Signs - Vital Signs Blood Pressure: 131/74 Heart Rate: 64 Respiratory Rate: 16 O2 Sat (%): 93 Height: 180.34 cm Weight: 75.6 kg ANE Physical Exam - Airway Neck exam: FROM Mallampati Score: Class 1 - Pulmonary Pulmonary: no respiratory distress - Cardiovascular Cardiovascular: regular rate and rhythym - ASA Status ASA Status: III ANE Anesthesia Plan Anesthesia Plan: general endotracheal anesthesia Lines/Monitors: central line, MONICA Specialized Airway: double lumen tube
[2017-10-02] MEDS ORDERED: fentaNYL 250 MCG/5 ML INJ ONE (07:20)
[2017-10-02] MEDS ORDERED: PROPOFOL/EMULSION 500 MG/50 ML BOTTLE IV ONE (07:21)
[2017-10-02] MEDS ORDERED: ISOFLURANE 100 ML BOTTLE IH ONE (09:08)
[2017-10-02] MEDS ORDERED: MAGNESIUM SULF 2 GM/WATER 50 ML BAG IV ONE (10:11)
[2017-10-02] MEDS ORDERED: BUPIVACAINE 0.25% 30 ML SDV ONE (11:52)
[2017-10-02] MEDS ORDERED: fentaNYL 100 MCG/2 ML INJ ONE ×3 (12:02→16:34)
[2017-10-02] MEDS ORDERED: HYDROCODONE/APAP 5/325 TAB PO PRN (13:21)
[2017-10-02] MEDS ORDERED: METOCLOPRAMIDE 10 MG/2 ML VIAL IVP PRN (13:21)
[2017-10-02] MEDS ORDERED: ONDANSETRON 4 MG/2 ML VIAL IVP PRN (13:21)
[2017-10-02] MEDS ORDERED: POTASSIUM Cl (KCl) 50 ML IV PRN (13:21)
[2017-10-02] MEDS ORDERED: BISACODYL 10 MG SUPP PR PRN (13:21)
[2017-10-02] MEDS ORDERED: MAGNESIUM HYDROXIDE 30 ML UDCUP PO PRN (13:21)
[2017-10-02] MEDS ORDERED: SODIUM CL NASAL 45 ML BTL EACHNARE PRN (13:21)
[2017-10-02] MEDS ORDERED: MAGNESIUM SULF 2 GM/WATER 50 ML IV ONE (13:21)
[2017-10-02] MEDS ORDERED: ACETAMINOPHEN 650 MG SUPP PR PRN (13:21)
[2017-10-02] MEDS ORDERED: CEPACOL LOZENGE PO PRN (13:21)
[2017-10-02] MEDS ORDERED: fentaNYL 100 MCG/2 ML INJ IVP PRN (13:21)
[2017-10-02] MEDS ORDERED: MEPERIDINE 25 MG/ML SYR IVP PRN (13:21)
[2017-10-02] MEDS ORDERED: ONDANSETRON DISINTEGRATING 4 MG TAB PO PRN (13:21)
[2017-10-02] MEDS ORDERED: PANTOPRAZOLE SODIUM 40 MG VIAL IVP ONE (13:21)
[2017-10-02] MEDS ORDERED: D50W 25 GM/50 ML SYR IVP PRN (13:21)
[2017-10-02] MEDS ORDERED: LACTULOSE 20 GM/30 ML UDCUP PO PRN (13:21)
[2017-10-02] MEDS ORDERED: CARBOXYMETHYLCELLULOSE 1% 0.4 ML DROPERETTE EACHEYE PRN (13:26)
[2017-10-02] MEDS ORDERED: NS 1,000 ML IV SCH (13:30)
[2017-10-02] MEDS ORDERED: INSULIN REGULAR HUMAN 100 UNIT in NS 100 ML IV SCH (13:30)
[2017-10-02] MEDS ORDERED: ceFAZolin 2 GM/DEXTROSE 100 ML IV SCH (14:00)
[2017-10-02] MEDS ORDERED: fentaNYL 50 MCG PATCH TD SCH (14:15)
--- NOTE | 2017-10-02 14:22 | CPEKG ---
Heart Rate: 74 RR Interval: 811 P-R Interval: 240 QRSD Interval: 116 QT Interval: 440 QTC Interval: 489 P Ronan: 73 QRS Ronan: -73 T Wave Ronan: 91 EKG Severity - ABNORMAL ECG - EKG Impression: SINUS RHYTHM EKG Impression: FIRST DEGREE AV BLOCK EKG Impression: NONSPECIFIC IVCD WITH LAD EKG Impression: ST ELEVATION, PROBABLE INFERIOR INJURY EKG Impression: BORDERLINE R WAVE PROGRESSION, ANTERIOR LEADS Electronically Signed By: Naun Neff 03-Oct-2017 10:42:34
--- NOTE | 2017-10-02 14:25 | GOP ---
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 PROCEDURE PERFORMED: Right mini thoracotomy, mitral valve repair with triangular resection, chordal reconstruction to P2, a #30 Physio annuloplasty ring, and right common femoral artery and vein cannul ation with primary repair. FINDINGS: Patient was noted to have severe mitral insufficiency with markedly dilated left atrium an d left ventricle. He was referred for surgical intervention. DESCRIPTION OF PROCEDURE: He was consented for surgery, brought to the operating room, intubated, an d monitoring lines were placed. A double-lumen endotracheal tube was placed by Anesthesia. His righ t side was slightly elevated. He was prepped and draped in sterile classical manner. A 2 cm incisio n was placed down over the femoral artery and vein, which were large, good quality without plaque. A pursestring suture was placed in both. We then performed a third intercostal space 4 cm incision la teral to the nipple in the anterior axillary line. Soft tissue retractor was placed. With the lung down, we were directly over the hilum of the lung. The pericardium was opened and pericardial stay s utures were placed. He was heparinized. We then proceeded with cannulation of the femoral vein unde r echo guidance with placement of the cannula in the superior vena cava. I then placed the arterial cannula without difficulty with echo guidance, identifying the wire in the descending thoracic aorta. Cardiopulmonary bypass was then begun. An antegrade cardioplegia catheter was placed in the ascend ing aorta and a crossclamp was applied through a separate stab wound incision, arresting the heart. We then developed the transverse sinus and the oblique sinus, developed Sondergaard groove and opened the left atrium, with a transthoracic retractor placed. Good visualization of the valve was noted. He had marked prolapse and rupture of P2 and the first portion of P3. P1 and the distal portion of P3 were otherwise in the normal plane, as was the anterior leaflet. It was a classically myxomatous valve. We then placed circumferential annuloplasty sutures without difficulty for better exposure. I then did a triangular resection involving the medial portion of P2 and the medial portion of P3. I then did [place]-Lionel interrupted closures of the valvulotomy and then did a 4-0 [place]-Lionel cord from P2 t o the anterior papillary muscle. Distention of the ventricle revealed no regurgitation. We then siz ed the patient for a 30 Physio ring, which was secured in place with Cor-Knots. Distention of the ve ntricle revealed no significant regurgitation. There was a small cleft between P1 and P2, which was closed with 4-0 Prolene. We then closed the left atrial appendage from the inside with a double-laye r closure, avoiding circumflex territory. We then closed the left atrium in the standard fashion. C O2 had been infused throughout the procedure. Intermittent ventilation and filling of the heart de-a ired the left chamber. Crossclamp was then removed with suction on the ascending aortic vent. It to ok some time for spontaneous cardiac activity to resume. The patient was paced until that occurred. When no further air was identified, the patient was weaned in Trendelenburg. Echo confirmed no sign ificant regurgitation with good coaptation and no SITA. Heparin was reversed with protamine. The can nula was removed and oversewn. Two ventricular pacing wires were brought out through a separate stab wound incision. The intercostal spaces approximated with large #1 Vicryl sutures to prevent herniat ion and reapproximating the ribs. The remainder of the incisions were closed in a standard fashion. Dressing was applied. Patient was returned to ICU in stable condition. /[id number]/MODL
--- NOTE | 2017-10-02 14:38 | POSTANESTH ---
Post Anesthetic Evaluation Cardiovascular Status: Normal, Stable Respiratory Status: Normal, Stable Level of Consciousness/Mental Status: Can Participate in Eval Pain Control: Adequate, Prn Tx Ordered Nausea/Vomiting Control: Adequate, Prn Tx Ordered Complications Possibly Related to Anesthesia: None Noted
[2017-10-02] MEDS ORDERED: POTASSIUM Cl (KCl) 50 ML IV ONE (15:00)
[2017-10-02] MEDS: ceFAZolin 2 GM/DEXTROSE 100 ML IV SCH ×2 (15:11→21:24)
--- NOTE | 2017-10-02 15:59 | CPEKG ---
Heart Rate: 65 RR Interval: 923 P-R Interval: 252 QRSD Interval: 112 QT Interval: 440 QTC Interval: 458 P [place]: 71 QRS [place]: -70 T Wave [place]: 61 EKG Severity - ABNORMAL ECG - EKG Impression: SINUS RHYTHM EKG Impression: VENTRICULAR PREMATURE COMPLEX EKG Impression: FIRST DEGREE AV BLOCK EKG Impression: NONSPECIFIC IVCD WITH LAD EKG Impression: PROBABLE INFERIOR INFARCT, OLD Electronically Signed By: Naun Neff 03-Oct-2017 10:42:18
[2017-10-02] MEDS ORDERED: LIDOCAINE 1% 300 MG/30 ML SDV ONE (16:34)
[2017-10-02] MEDS ORDERED: IOPAMIDOL (ISOVUE-370) 150 ML BTL IV ONE (16:35)
[2017-10-02] MEDS ORDERED: MIDAZOLAM 2 MG/2 ML VIAL ONE (16:35)
[2017-10-02] MEDS ORDERED: ALBUMIN 5% 500 ML BOTTLE IV ONE (17:02)
[2017-10-02 18:07] LABS: CALCULATED OXYGEN SATURATION 91 % (92-95)
--- NOTE | 2017-10-02 18:26 | CPIP ---
[f rep st] INVASIVE CARDIAC PROCEDURE DATE OF PROCEDURE: 10/02/2017 PROCEDURE: 1. Coronary angiography. 2. Left ventricular end-diastolic pressure. INDICATION: 1. Abnormal EKG suggesting inferior injury postoperatively. 2. Abnormal echocardiogram with inferior hypokinesis postoperatively. ACCESS: Prepped and draped in sterile fashion. 1% lidocaine was used to anesthetize the left inguin al region. A 6-Swiss introducer sheath was placed selectively in the left common femoral artery via modified Seldinger technique. CORONARY ANGIOGRAPHY: A 6-Swiss JL4 was advanced to the left main coronary artery and images obtain ed. The left main coronary artery bifurcated into an LAD and circumflex coronary arteries. The left main coronary artery appeared normal. The left anterior descending coronary artery gave rise to 1 p rominent diagonal branch. The left anterior descending coronary artery had mild diffuse disease thro ughout. In the mid vessel, there is a single discrete 20% to 30% stenosis present. The first diagon al artery had mild luminal irregularities throughout. There was no stenosis greater than 15% to 20%. The circumflex coronary artery is a small vessel. The circumflex coronary artery appeared normal. A 6-Swiss JR4 was advanced to the right coronary artery and images obtained. The right coronary ar crystal is dominant. The right coronary artery is large. The right coronary artery had mild diffuse di sease throughout. There was no stenosis greater than 15% to 20%. LEFT VENTRICULOGRAPHY: A 6-Swiss pigtail catheter was advanced in the left ventricle and pressure o btained. Left ventricular end-diastolic pressure is 15 mmHg. COMPLICATIONS: None. CONCLUSIONS: 1. Mild coronary artery disease without flow limitation. 2. Left ventricular end-diastolic pressure mildly elevated at 15 mmHg. 3. Plan is for medical management. /[id number]/MODL
[2017-10-02] MEDS: ALBUMIN 5% 250 ML IV PRN (20:12)
[2017-10-02] MEDS: SENNOSIDES/DOCUSATE SODIUM TAB PO SCH (21:18)
[2017-10-02] MEDS: MUPIROCIN 2% 22 GM OINT NS SCH (21:26)
[2017-10-02] MEDS ORDERED: ALBUMIN 5% 500 ML IV ONE (22:30)
[2017-10-02 23:28] LABS: HEMATOCRIT 28.3 % (40.0-51.0); HEMOGLOBIN 10.2 g/dL (13.7-17.5); LIPEMIA HEMOLYSIS FLAG 90 (0-99); MEAN CELL HEMOGLOBIN 32.4 pg (27.9-34.1); MEAN CELL VOLUME 89.8 fL (81.5-99.8); PLATELET CLUMPS FLAG 0 (0-99); RED BLOOD CELL COUNT 3.15 10^6/uL (4.40-6.38); RED CELL DISTRIBUTION WIDTH 13.6 % (11.5-15.2)
[2017-10-02 23:29] LABS: PLATELET COUNT 46 10^3/uL (150-400)
[2017-10-03 01:05] LABS: PLATELET ESTIMATE DECREASED (ADEQ)
[2017-10-03 05:01] LABS: % IMMATURE GRANULYOCYTES 0.4 % (0.0-1.1); ABSOLUTE IMMATURE GRANULOCYTES 0.05 10^3/uL (0.00-0.10); ADD DIFF? NO; ADD MORPH? NO; ADD SCAN? NO; ATYPICAL LYMPHOCYTE FLAG 0 (0-99); FRAGMENT RBC FLAG 0 (0-99); HEMATOCRIT 26.8 % (40.0-51.0); HEMOGLOBIN 9.5 g/dL (13.7-17.5); LEFT SHIFT FLG 0 (0-99); LIPEMIA HEMOLYSIS FLAG 90 (0-99); MEAN CELL HEMOGLOBIN 32.2 pg (27.9-34.1); MEAN CELL HEMOGLOBIN CONCENTR. 35.4 g/dL (32.4-36.7); MEAN CELL VOLUME 90.8 fL (81.5-99.8); PLATELET CLUMPS FLAG 0 (0-99); PLATELET COUNT 53 10^3/uL (150-400); RED BLOOD CELL COUNT 2.95 10^6/uL (4.40-6.38); RED CELL DISTRIBUTION WIDTH 13.8 % (11.5-15.2)
[2017-10-03 05:19] LABS: ANION GAP 11 mEq/L (8-16); CALCIUM 7.5 mg/dL (8.5-10.4); CARBON DIOXIDE 24 mEq/l (22-31); CHLORIDE 108 mEq/L (97-110); GLOMERULAR FILTRATION RATE > 60; GLUCOSE 96 mg/dL (70-100); POTASSIUM 4.1 mEq/L (3.5-5.2); SODIUM 143 mEq/L (134-144)
[2017-10-03] MEDS: ceFAZolin 2 GM/DEXTROSE 100 ML IV SCH ×3 (05:32→22:45)
--- NOTE | 2017-10-03 06:31 | SOAPPROG ---
MARIAELENA Progress Note Assessment/Plan: POD #1: Right mini thoracotomy, mitral valve repair with #30 Physio ring, closure left atrial appendage, right common femoral artery/vein cannulation with primary repair Severe MR s/p MV repair - FC out, AL out once off pressors, chest tube to remain on pleurovac - Coumadin, INR goal 2-3, duration 3 months to start - SCDs for DVT prophylaxis, heparin SQ on hold until platelets > 100 - Likely transfer to PCU later today Acute blood anemia with thrombocytopenia - 1U PRBC to be transfused today - Monitor platelets Dilated valvular cardiomyopathy - BB and diuretics when appropriate r/o inferior wall injury - Cath negative for flow-limiting CAD - Repeat 12-lead EKG today Subjective: Denies pain/SOB. Objective: Vital Signs Temp Pulse Resp BP Pulse Ox 37.1 C 66 16 100/42 L 95 10/03/17 06:00 10/03/17 06:00 10/03/17 06:00 10/03/17 06:00 10/03/17 06:00 Laboratory Results 10/03/17 04:30 10/03/17 04:30 10/02/17 10/03/17 10/04/17 05:59 05:59 05:59 Intake Total 3034.5 Output Total 3285 Balance -250.5 Physical Exam - Physical Exam General Appearance: WD/WN, alert, no apparent distress EENT: No scleral icterus (R), No scleral icterus (L) Neck: normal inspection Respiratory: No respiratory distress Cardiac/Chest: regular rate, rhythm Abdomen: non-tender, soft, No distended Skin: normal color, warm/dry Extremities: No pedal edema Neuro/Psych: no motor/sensory deficits, alert, normal mood/affect, oriented x 3 ICD10 Worksheet Patient Problems: Problems Problem Status Onset S/P MVR (mitral valve repair) Acute Mitral insufficiency Chronic Heart failure Acute chronic disease mgmt/transitional care Acute
[2017-10-03] MEDS: HEPARIN 5,000 UNIT/0.5 ML SYR SC SCH ×2 (07:37→14:53)
--- NOTE | 2017-10-03 08:48 | CPEKG ---
Heart Rate: 68 RR Interval: 882 P-R Interval: 236 QRSD Interval: 108 QT Interval: 428 QTC Interval: 456 P [place]: 66 QRS [place]: -62 T Wave [place]: 29 EKG Severity - ABNORMAL ECG - EKG Impression: SINUS RHYTHM EKG Impression: FIRST DEGREE AV BLOCK EKG Impression: LEFT ANTERIOR FASCICULAR BLOCK EKG Impression: LOW VOLTAGE IN FRONTAL LEADS EKG Impression: BORDERLINE R WAVE PROGRESSION, ANTERIOR LEADS Electronically Signed By: Naun Neff 03-Oct-2017 10:42:08
[2017-10-03] MEDS ORDERED: ASPIRIN 81 MG CHEWABLE TAB PO SCH (09:00)
[2017-10-03] MEDS: SENNOSIDES/DOCUSATE SODIUM TAB PO SCH ×2 (09:29→19:46)
[2017-10-03] MEDS: ALBUMIN 5% 250 ML IV PRN (09:30)
[2017-10-03] MEDS: PANTOPRAZOLE SODIUM 40 MG TAB PO SCH (09:30)
[2017-10-03] MEDS: MUPIROCIN 2% 22 GM OINT NS SCH ×2 (09:30→19:44)
[2017-10-03] MEDS: ASPIRIN EC 81 MG TAB PO SCH ×2 (09:31→16:08)
[2017-10-03 09:34] LABS: POTASSIUM 4.2 mEq/L (3.5-5.2)
[2017-10-03] MEDS ORDERED: ALBUMIN 5% 250 ML IV ONE (10:30)
--- NOTE | 2017-10-03 12:50 | ECHO ---
[email or web address] [address] [address] Main: [phone] Fax: Transthoracic Echocardiogram Name: CHELE FUNES MR#: [id number] Study Date: 10/02/2017 Study Time: 03:59 PM Date of : 1940 Age: 77 year(s) Height: 180.3 cm (71 in.) Weight: 75.3 kg (166 lb.) BSA: 1.95 m2 Gender: Male Examination: Echo Indication: Eval LV function post MV repair Image Quality: Contrast: Requested by: Humphrey Sage BP: 100 mmHg/52 mmHg Heart Rate: Rhythm: Indication: Eval LV function post MV repair Procedure Staff Coding Clerk: Omaira Rowell Reading Physician: Yuriy Fulton Requesting Provider: Conclusions: The ejection fraction is estimated to be 40-45 %. LV septal motion consistent with post-op state. LV inferior and inferolateral segments appear hypo/akinetic.. The left atrium is mildly dilated. The right atrium is mildly dilated. An annuloplasty ring is noted in the mitral valve position. Mild tricuspid regurgitation is present. Trivial pulmonic valve regurgitation. Measurements: Chambers Valvular Assessment AV/MV Valvular Assessment TV/PV Normal Normal Normal Name Value Range Name Value Range Name Value Range Ao Rupal (MM): 4.2 cm (2.2 cm-3.7 MV meanP mmHg ( - ) TR Vmax: 2.16 mm/s ( - ) cm) MV PHT: 0.120 s ( - ) TR PGmax: 19 mmHg ( - ) IVSd (2D): 1.1 cm (0.6 cm-1.1 MVA (PHT): 1.8 s ( - ) syst. PAP: 24 mmHg ( - ) cm) LVDd (2D): 6.5 cm (4.2 cm-5.9 cm) LVDs (2D): 4.7 cm (2.1 cm-4 cm) LVPWd (2D): 1.0 cm (0.6 cm-1 cm) LVEF (2D): 52 (>=54 %) EF Range: 40-45 % Continued Measurements: Chambers Valvular Assessment AV/MV Valvular Assessment TV/PV Name Value Name Value Name Value Patient: CHELE FUNES Study Date: 10/02/2017 Page 1 of 2 03:59 PM LADs: 4.7 cm MV DecTime: 394 m/s CVP (est.): 5 mmHg MV VTI: 32.60 cm Findings: Left Ventricle: Moderately dilated left ventricle. The ejection fraction is estimated to be 40-45 %. LV septal motion consistent with post-op state. LV inferior and inferolateral segments appear hypo/akinetic.. Right Ventricle: Normal size right ventricle. Left Atrium: The left atrium is mildly dilated. Right Atrium: The right atrium is mildly dilated. Mitral Valve: There is no mitral valve regurgitation. An annuloplasty ring is noted in the mitral valve position. MV mean PG is 2mmHG.. Aortic Valve: The aortic valve is tri-leaflet. There is no aortic valve regurgitation. Tricuspid Valve: The tricuspid valve appears normal. Mild tricuspid regurgitation is present. Pulmonic Valve: The pulmonic valve is normal in appearance. Trivial pulmonic valve regurgitation. Pericardium: No pericardial effusion. (No Signature Object) Patient: CHELE FUNES Study Date: 10/02/2017 Page 2 of 2 03:59 PM [id number]
[2017-10-03 13:29] LABS: POTASSIUM 3.9 mEq/L (3.5-5.2)
--- NOTE | 2017-10-03 15:57 | ASMTCMCOM ---
CM Note CM Note Notes: 77 year old male admitted for mitral insufficiency S/P MVR. Patient has a hx of CHF. No discharge needs per RN. Home with . Date Signed: 10/03/2017 03:56 PM Electronically Signed By:Karime Machado LCSW
[2017-10-03] MEDS ORDERED: WARFARIN SODIUM 5 MG TAB PO ONE (16:00)
[2017-10-03] MEDS: traMADol 50 MG TAB PO PRN ×2 (16:05→20:45)
[2017-10-04] MEDS: traMADol 50 MG TAB PO PRN ×2 (04:14→08:37)
[2017-10-04 04:21] LABS: % IMMATURE GRANULYOCYTES 0.5 % (0.0-1.1); ABSOLUTE IMMATURE GRANULOCYTES 0.07 10^3/uL (0.00-0.10); ADD DIFF? NO; ADD MORPH? NO; ADD SCAN? NO; ATYPICAL LYMPHOCYTE FLAG 0 (0-99); FRAGMENT RBC FLAG 0 (0-99); HEMATOCRIT 29.2 % (40.0-51.0); HEMOGLOBIN 10.1 g/dL (13.7-17.5); LEFT SHIFT FLG 0 (0-99); LIPEMIA HEMOLYSIS FLAG 90 (0-99); MEAN CELL HEMOGLOBIN 31.6 pg (27.9-34.1); MEAN CELL HEMOGLOBIN CONCENTR. 34.6 g/dL (32.4-36.7); MEAN CELL VOLUME 91.3 fL (81.5-99.8); PLATELET CLUMPS FLAG 0 (0-99); RED CELL DISTRIBUTION WIDTH 14.6 % (11.5-15.2)
[2017-10-04 04:25] LABS: PLATELET COUNT 43 10^3/uL (150-400)
[2017-10-04 04:30] LABS: INR 1.85 (0.83-1.16); PROTIME(PATIENT) 21.4 SEC (12.0-15.0)
[2017-10-04 04:46] LABS: ANION GAP 10 mEq/L (8-16); CALCIUM 7.6 mg/dL (8.5-10.4); CARBON DIOXIDE 25 mEq/l (22-31); CHLORIDE 103 mEq/L (97-110); CREATININE 1.1 mg/dL (0.7-1.3); GLOMERULAR FILTRATION RATE > 60; GLUCOSE 96 mg/dL (70-100); POTASSIUM 4.2 mEq/L (3.5-5.2); SODIUM 138 mEq/L (134-144)
[2017-10-04 04:51] LABS: PLATELET ESTIMATE DECREASED (ADEQ)
--- NOTE | 2017-10-04 07:41 | SOAPPROG ---
SOAP Progress Note Assessment/Plan: POD #2: Right mini thoracotomy, mitral valve repair with #30 Physio ring, closure left atrial appendage, right common femoral artery/vein cannulation with primary repair Severe MR s/p MV repair - Chest tube to remain d/t high output - Coumadin, INR goal 2-3, duration 3 months to start - SCDs for DVT prophylaxis Acute blood anemia with thrombocytopenia - H/H stable s/p 1U PRBC - Platelets lower today - HIT ordered Dilated valvular cardiomyopathy - BB and diuretics when appropriate r/o inferior wall injury - Cath negative for flow-limiting CAD - ST changes likely secondary to vasospasm Subjective: Denies pain/SOB. Objective: Vital Signs Temp Pulse Resp BP Pulse Ox 36.7 C 67 14 115/49 L 93 10/04/17 04:00 10/04/17 04:00 10/04/17 04:00 10/04/17 04:00 10/04/17 04:00 Laboratory Results 10/04/17 04:15 10/04/17 04:15 10/03/17 10/04/17 10/05/17 05:59 05:59 05:59 Intake Total 3034.5 2377.2 Output Total 3285 1510 Balance -250.5 867.2 PT 21.4 SEC (12.0-15.0) H 10/04/17 04:15 INR 1.85 (0.83-1.16) H 10/04/17 04:15 Physical Exam - Physical Exam General Appearance: WD/WN, alert, no apparent distress EENT: No scleral icterus (R), No scleral icterus (L) Neck: normal inspection Respiratory: No respiratory distress Cardiac/Chest: regular rate, rhythm Abdomen: non-tender, soft, No distended Skin: normal color, warm/dry Extremities: No pedal edema Neuro/Psych: no motor/sensory deficits, alert, normal mood/affect, oriented x 3 ICD10 Worksheet Patient Problems: Problems Problem Status Onset S/P MVR (mitral valve repair) Acute Mitral insufficiency Chronic Heart failure Acute chronic disease mgmt/transitional care Acute
[2017-10-04] MEDS: SENNOSIDES/DOCUSATE SODIUM TAB PO SCH ×2 (08:37→21:20)
[2017-10-04] MEDS: ASPIRIN EC 81 MG TAB PO SCH (08:37)
[2017-10-04] MEDS: PANTOPRAZOLE SODIUM 40 MG TAB PO SCH (08:38)
[2017-10-04] MEDS: MUPIROCIN 2% 22 GM OINT NS SCH (08:39)
[2017-10-04] MEDS: POLYETHYLENE GLYCOL 3350 17 GM PKT PO PRN (10:57)
[2017-10-05 05:54] LABS: INR 2.68 (0.83-1.16); PROTIME(PATIENT) 28.8 SEC (12.0-15.0)
[2017-10-05 06:07] LABS: HEMATOCRIT 26.4 % (40.0-51.0); HEMOGLOBIN 9.2 g/dL (13.7-17.5); LIPEMIA HEMOLYSIS FLAG 90 (0-99); MEAN CELL HEMOGLOBIN 31.4 pg (27.9-34.1); MEAN CELL HEMOGLOBIN CONCENTR. 34.8 g/dL (32.4-36.7); MEAN CELL VOLUME 90.1 fL (81.5-99.8); PLATELET CLUMPS FLAG 20 (0-99); RED BLOOD CELL COUNT 2.93 10^6/uL (4.40-6.38)
[2017-10-05 06:11] LABS: PLATELET COUNT 45 10^3/uL (150-400)
--- NOTE | 2017-10-05 06:34 | SOAPPROG ---
MARIAELENA Progress Note Assessment/Plan: POD #3: Right mini thoracotomy, mitral valve repair with #30 Physio ring, closure left atrial appendage, right common femoral artery/vein cannulation with primary repair Severe MR s/p MV repair - Chest tube to remain d/t high output - Coumadin, INR goal 2-3, duration 3 months - will hold today as INR > 2 - SCDs for DVT prophylaxis Acute blood anemia with thrombocytopenia - H/H slightly lower today, no signs of active bleeding, BP stable - Platelets lower today - HIT pending Dilated valvular cardiomyopathy - BB avoided d/t bradycardia, diuretics restarted today r/o inferior wall injury - Cath negative for flow-limiting CAD - ST changes likely secondary to vasospasm and have since resolved Subjective: Denies pain/SOB. Objective: Vital Signs Temp Pulse Resp BP Pulse Ox 36.7 C 66 12 116/54 L 96 10/05/17 04:00 10/05/17 04:00 10/05/17 04:00 10/05/17 04:00 10/05/17 04:00 Laboratory Results 10/05/17 05:35 10/04/17 04:15 10/04/17 10/05/17 10/06/17 05:59 05:59 05:59 Intake Total 2377.2 1300 Output Total 1510 3240 Balance 867.2 -1940 PT 28.8 SEC (12.0-15.0) H 10/05/17 05:35 INR 2.68 (0.83-1.16) H 10/05/17 05:35 Physical Exam - Physical Exam General Appearance: WD/WN, alert, no apparent distress EENT: No scleral icterus (R), No scleral icterus (L) Neck: normal inspection Respiratory: No respiratory distress Cardiac/Chest: regular rate, rhythm Abdomen: non-tender, soft, No distended Skin: normal color, warm/dry Extremities: No pedal edema Neuro/Psych: no motor/sensory deficits, alert, normal mood/affect, oriented x 3 ICD10 Worksheet Patient Problems: Problems Problem Status Onset S/P MVR (mitral valve repair) Acute Mitral insufficiency Chronic Heart failure Acute chronic disease mgmt/transitional care Acute
[2017-10-05] MEDS: SENNOSIDES/DOCUSATE SODIUM TAB PO SCH ×2 (08:15→21:51)
[2017-10-05] MEDS: FUROSEMIDE 40 MG TAB PO SCH (08:15)
[2017-10-05] MEDS: POTASSIUM CL 20 MEQ TAB PO SCH (08:15)
[2017-10-05] MEDS: PANTOPRAZOLE SODIUM 40 MG TAB PO SCH (08:15)
[2017-10-05] MEDS ORDERED: VITAMIN B COMPLEX 1 EA CAP/TAB PO SCH (09:00)
[2017-10-05] MEDS ORDERED: Herbals/Supplements -Info Only PO SCH (09:00)
[2017-10-05] MEDS: VITAMIN B COMPLEX 1 EA CAP/TAB PO SCH (09:08)
[2017-10-05] MEDS: MULTIVITAMINS 1 EACH TAB PO SCH (09:08)
[2017-10-05] MEDS: CHOLECALCIFEROL VIT D3 2,000 UNITS TAB/CAP PO SCH (09:09)
[2017-10-05 11:18] LABS: PLATELET ESTIMATE DECREASED (ADEQ)
--- NOTE | 2017-10-05 13:17 | ECHO ---
[email or web address] [address] [address] Main: [phone] Fax: Transthoracic Echocardiogram Name: CHELE FUNES MR#: [id number] Study Date: 10/05/2017 Study Time: 10:05 AM Date of : 1940 Age: 77 year(s) Height: 180.3 cm (71 in.) Weight: 82.55 kg (182 lb.) BSA: 2.03 m2 Gender: Male Examination: Echo Indication: S/P MV repair with #30 ring Image Quality: Contrast: Requested by: Trevon Zepeda BP: 120 mmHg/60 mmHg Heart Rate: Rhythm: Indication: S/P MV repair with #30 ring Procedure Staff Textile Bag Sewer: Omaira Pennington Physician: Brady Pimentel Requesting Provider: Conclusions: Mildly dilated left ventricle. Mildly reduced systolic LV function. The ejection fraction is estimated to be 40-45 %. The left atrium is mildly dilated. There is no mitral valve regurgitation. An annuloplasty ring is noted in the mitral valve position. MV max PG is 13mmHG. MV mean PG is 5mmHG.. The aortic valve is tri-leaflet. There is no aortic valve regurgitation. No aortic valve stenosis is present. Measurements: Chambers Valvular Assessment AV/MV Valvular Assessment TV/PV Normal Normal Normal Name Value Range Name Value Range Name Value Range Ao Rupal (MM): 4.0 cm (2.2 cm-3.7 AV meanP mmHg ( - ) TR Vmax: 2.24 mm/s ( - ) cm) MV E Vmax: 1.75 m/s ( - ) TR PGmax: 20 mmHg ( - ) IVSd (2D): 1.1 cm (0.6 cm-1.1 MV A Vmax: 0.88 m/s ( - ) syst. PAP: 25 mmHg ( - ) cm) MV E/A: 1.99 ( - ) LVDd (2D): 6.0 cm (4.2 cm-5.9 MV meanP mmHg ( - ) cm) MV PHT: 0.122 s ( - ) LVPWd (2D): 0.9 cm (0.6 cm-1 cm) MVA (PHT): 1.8 s ( - ) LVEF (BP): 53 % (>=55 %) EF Range: 40-45 % Continued Measurements: Chambers Valvular Assessment AV/MV Valvular Assessment TV/PV Patient: CHELE FUNES Study Date: 10/05/2017 Page 1 of 2 10:05 AM Name Value Name Value Name Value LADs: 4.5 cm MV DecTime: 398 m/s CVP (est.): 5 mmHg LADs Lon.1 cm MV VTI: 60.60 cm LA Area: 24.8 cm2 Findings: Left Ventricle: Mildly dilated left ventricle. Mildly reduced systolic LV function. The ejection fraction is estimated to be 40-45 %. LV septal motion consistent with post-op state. LV inferior and inferolateral segments appear hypokinetic.. Left Atrium: The left atrium is mildly dilated. Right Atrium: The right atrium is mildly dilated. Mitral Valve: There is no mitral valve regurgitation. An annuloplasty ring is noted in the mitral valve position. MV max PG is 13mmHG. MV mean PG is 5mmHG.. Aortic Valve: The aortic valve is tri-leaflet. There is no aortic valve regurgitation. No aortic valve stenosis is present. Tricuspid Valve: The tricuspid valve appears normal. Mild tricuspid regurgitation is present. The pulmonary artery pressure is normal. Pulmonic Valve: The pulmonic valve is normal in appearance. Trivial pulmonic valve regurgitation. Pericardium: No pericardial effusion. (No Signature Object) Patient: CHELE FUNES Study Date: 10/05/2017 Page 2 of 2 10:05 AM [id number]
[2017-10-05] MEDS: ACETAMINOPHEN 325 MG TAB PO PRN ×2 (16:07→21:50)
[2017-10-06] MEDS: ACETAMINOPHEN 325 MG TAB PO PRN ×3 (05:32→20:52)
[2017-10-06 05:41] LABS: HEMATOCRIT 27.6 % (40.0-51.0); HEMOGLOBIN 9.6 g/dL (13.7-17.5); MEAN CELL HEMOGLOBIN 31.7 pg (27.9-34.1); MEAN CELL HEMOGLOBIN CONCENTR. 34.8 g/dL (32.4-36.7); MEAN CELL VOLUME 91.1 fL (81.5-99.8); RED BLOOD CELL COUNT 3.03 10^6/uL (4.40-6.38); RED CELL DISTRIBUTION WIDTH 13.8 % (11.5-15.2)
[2017-10-06 05:50] LABS: INR 1.88 (0.83-1.16); PROTIME(PATIENT) 21.7 SEC (12.0-15.0)
[2017-10-06 05:57] LABS: ALANINE AMINOTRANSFERASE 34 IU/L (21-72); ALBUMIN 2.7 g/dL (3.5-5.0); ALKALINE PHOSPHATASE 37 IU/L (38-126); ANION GAP 9 mEq/L (8-16); ASPARTATE AMINOTRANSFERASE 53 IU/L (17-59); BILIRUBIN,TOTAL 0.9 mg/dL (0.1-1.4); CALCIUM 7.9 mg/dL (8.5-10.4); CARBON DIOXIDE 26 mEq/l (22-31); CHLORIDE 104 mEq/L (97-110); CREATININE 0.9 mg/dL (0.7-1.3); GLOMERULAR FILTRATION RATE > 60; GLUCOSE 82 mg/dL (70-100); SODIUM 139 mEq/L (134-144); TOTAL PROTEIN 4.5 g/dL (6.3-8.2)
--- NOTE | 2017-10-06 06:35 | SOAPPROG ---
SOAP Progress Note Assessment/Plan: POD #4: Right mini thoracotomy, mitral valve repair with #30 Physio ring, closure left atrial appendage, right common femoral artery/vein cannulation with primary repair Severe MR s/p MV repair - Chest tube to remain d/t high output - Coumadin, INR goal 2-3, duration 3 months - SCDs for DVT prophylaxis Acute blood anemia with thrombocytopenia - H/H stable - Platelets trending higher - HIT pending Dilated valvular cardiomyopathy - BB avoided d/t bradycardia, diuretics and ACEi restarted r/o acute post-operative coronary artery blockage - Cath negative for flow-limiting CAD - ST changes likely secondary to vasospasm - Most recent EKG showed resolution Subjective: No complaints. Objective: Vital Signs Temp Pulse Resp BP Pulse Ox 36.8 C 68 12 120/75 97 10/06/17 04:00 10/06/17 04:00 10/06/17 04:00 10/06/17 04:00 10/06/17 04:00 Laboratory Results 10/06/17 05:25 10/06/17 05:25 10/05/17 10/06/17 10/07/17 05:59 05:59 05:59 Intake Total 1300 1470 Output Total 3240 3455 Balance -1939 -1984 PT 21.7 SEC (12.0-15.0) H 10/06/17 05:25 INR 1.88 (0.83-1.16) H 10/06/17 05:25 Physical Exam - Physical Exam General Appearance: WD/WN, alert, no apparent distress EENT: No scleral icterus (R), No scleral icterus (L) Neck: normal inspection Respiratory: No respiratory distress Cardiac/Chest: regular rate, rhythm Abdomen: non-tender, soft, No distended Skin: normal color, warm/dry Extremities: No pedal edema Neuro/Psych: no motor/sensory deficits, alert, normal mood/affect, oriented x 3 ICD10 Worksheet Patient Problems: Problems Problem Status Onset S/P MVR (mitral valve repair) Acute Mitral insufficiency Chronic Heart failure Acute chronic disease mgmt/transitional care Acute
[2017-10-06] MEDS: SENNOSIDES/DOCUSATE SODIUM TAB PO SCH ×2 (09:16→20:52)
[2017-10-06] MEDS: POTASSIUM CL 20 MEQ TAB PO SCH (09:16)
[2017-10-06] MEDS: CHOLECALCIFEROL VIT D3 2,000 UNITS TAB/CAP PO SCH (09:16)
[2017-10-06] MEDS: PANTOPRAZOLE SODIUM 40 MG TAB PO SCH (09:16)
[2017-10-06] MEDS: FUROSEMIDE 40 MG TAB PO SCH (09:16)
[2017-10-06] MEDS: VITAMIN B COMPLEX 1 EA CAP/TAB PO SCH (09:16)
[2017-10-06] MEDS: MULTIVITAMINS 1 EACH TAB PO SCH (09:16)
[2017-10-06] MEDS: LISINOPRIL 2.5 MG TAB PO SCH (09:19)
[2017-10-06] MEDS: POLYETHYLENE GLYCOL 3350 17 GM PKT PO PRN (13:21)
[2017-10-06] MEDS ORDERED: WARFARIN SODIUM 2.5 MG TAB PO ONE (16:00)
[2017-10-06 18:36] LABS: HEPARIN INDUCED ANTIBODY Negative (Negative); HEPARIN-PF4 IgG ANTIBODY ELISA < 0.075 OD (<0.400)
[2017-10-07 07:15] LABS: INR 1.71 (0.83-1.16); PROTIME(PATIENT) 20.1 SEC (12.0-15.0)
[2017-10-07 07:22] VITALS: RESP 18
--- NOTE | 2017-10-07 08:16 | SOAPPROG ---
SOAP Progress Note Assessment/Plan: POD #5: Right mini thoracotomy, mitral valve repair with #30 Physio ring, closure left atrial appendage, right common femoral artery/vein cannulation with primary repair Severe MR s/p MV repair - Chest tube out - Coumadin, INR goal 2-3, duration 3 months, to be managed [facility] [place] [facility] Acute blood anemia with thrombocytopenia - H/H stable - Platelets trending higher - HIT negative Dilated valvular cardiomyopathy - BB avoided d/t bradycardia, diuretics and ACEi restarted r/o acute post-operative coronary artery blockage - Cath negative for flow-limiting CAD - ST changes likely secondary to vasospasm - Most recent EKG showed resolution Disposition - Home today without services Subjective: No CP/SOB. +BM. Objective: Vital Signs Temp Pulse Resp BP Pulse Ox 36.9 C 64 18 117/66 90 L 10/07/17 07:21 10/07/17 07:21 10/07/17 07:21 10/07/17 07:21 10/07/17 07:21 Laboratory Results 10/06/17 05:25 10/06/17 05:25 10/06/17 10/07/17 10/08/17 05:59 05:59 05:59 Intake Total 1470 1400 Output Total 3455 80 80 Balance -1985 1320 -80 PT 20.1 SEC (12.0-15.0) H 10/07/17 06:20 INR 1.71 (0.83-1.16) H 10/07/17 06:20 Physical Exam - Physical Exam General Appearance: WD/WN, alert, no apparent distress EENT: No scleral icterus (R), No scleral icterus (L) Neck: normal inspection Respiratory: No respiratory distress Cardiac/Chest: regular rate, rhythm Abdomen: non-tender, soft, No distended Skin: normal color, warm/dry Extremities: No pedal edema Neuro/Psych: no motor/sensory deficits, alert, normal mood/affect, oriented x 3 ICD10 Worksheet Patient Problems: Problems Problem Status Onset S/P MVR (mitral valve repair) Acute Mitral insufficiency Chronic Heart failure Acute chronic disease mgmt/transitional care Acute
[2017-10-07] MEDS: POTASSIUM CL 20 MEQ TAB PO SCH (09:29)
[2017-10-07] MEDS: VITAMIN B COMPLEX 1 EA CAP/TAB PO SCH (09:29)
[2017-10-07] MEDS: FUROSEMIDE 40 MG TAB PO SCH (09:29)
[2017-10-07] MEDS: CHOLECALCIFEROL VIT D3 2,000 UNITS TAB/CAP PO SCH (09:29)
[2017-10-07] MEDS: LISINOPRIL 2.5 MG TAB PO SCH (09:29)
[2017-10-07] MEDS: MULTIVITAMINS 1 EACH TAB PO SCH (09:29)
[2017-10-07] MEDS: SENNOSIDES/DOCUSATE SODIUM TAB PO SCH (09:42)
[2017-10-07] MEDS: PANTOPRAZOLE SODIUM 40 MG TAB PO SCH (09:42)
[2017-10-07] MEDS: ASPIRIN EC 81 MG TAB PO SCH (09:49)
--- NOTE | 2017-10-07 09:57 | PDDCSUM ---
Discharge Summary Discharge Summary: ADMISSION DATE: 10/02/17 DISCHARGE DATE: 10/07/17 ADMISSION DX: 1. Severe mitral valve insufficiency 2. Dilated valvular cardiomyopathy DISCHARGE DX: 1. Severe mitral valve insufficiency 2. Dilated valvular cardiomyopathy 3. Acute blood loss anemia 4. Thrombocytopenia 5. Acute post-operative coronary artery blockage ruled-out PROCEDURES 10/02/17, Humphrey Sage: 1. Right mini-thoracotomy, mitral valve repair with #30 Physio annuloplasty, closure left atrial appendage, right common femoral/vein cannulation with primary closure HOSPITAL COURSE BY PROBLEM LIST 1. Severe mitral valve insufficiency - s/p repair with normal functioning valve as seen on postop ECHO. Coumadin prescribed for thromboprophylaxis, INR goal 2-3 , duration 3 months. Baby ASA lifelong. 2. Dilated valvular cardiomyopathy - mild fluid overload. ACEi resumed Lasix increased from home dose. 3. Acute blood loss anemia - stable s/p 1 unit PRBC. 4. Thrombocytopenia - HIT negative with rebound in platelets. 5. r/o acute post-operative coronary artery blockage - post-op EKG changes suggestive of acute infarction. LHC performed which revealed stable non flow- limiting CAD. EKG with resolution and changes thought to be secondary to vasospasm. CONDITION Good DISPOSITION Home ACTIVITY Pt was instructed on activity limitations and which problems to call [facility] with. Please see Discharge Plan in chart for specifics. DISCHARGE MEDICATIONS 1. Aspirin EC [Aspirin EC 81 mg (*)] 81 mg PO DAILY 2. Carboxymethylcellulose 1% [Refresh Celluvisc (*)] 1 drop EACHEYE DAILY PRN 3. Cholecalciferol Vit D3 [Vitamin D3 2000 units tab (OTC)] 2,000 units PO DAILY 4. Herbals/Supplements -Info Only 1 ea PO DAILY 5. Multivitamins [Multivitamin (*)] 1 each PO DAILY 6. Vitamin B Complex [B Complex] 1 each PO DAILY 7. Lisinopril [Zestril 2.5 mg (*)] 2.5 mg PO DAILY 8. Acetaminophen [Tylenol 325mg (*)] 325 - 650 mg PO Q4HRS PRN 9. Furosemide [Lasix 40 MG (*)] 40 mg PO DAILY 10. Potassium Cl [Klor-Con 20 meq (*)] 20 meq PO DAILY 11. Warfarin Sodium [Coumadin 5MG (*)] 5 mg PO DAILY AT 4PM PENDING STUDIES/LABS 1. CXR prior to surgical follow-up 2. INR 10/09 at [facility] lab with future measurements at [facility] F/U APPOINTMENTS 1. Humphrey Sage - 10/17/17, 11:45
--- NOTE | 2017-10-07 10:46 | ASMTCMCOM ---
CM Note CM Note Notes: 10/07/2017 Case Management Note Met w/pt. IM signed. Pt d/c today. is taking home. No case management needs identified. Pt did not feel home care was appropriate. Per Dr. Sage, pt is safe for independent d/c. Pt has follow up appointments scheduled for Mon and Tu this coming week. Case Management d/c poc: home independent w/follow up as directed. Date Signed: 10/07/2017 10:45 AM Electronically Signed By:Violette Patel RN
[2017-10-07 11:40] VITALS: BP 110/61; PULSE 65; TEMP 98.1; O2SAT 91
--- NOTE | 2017-10-07 15:50 | ASDISCHSUM ---
Discharge Information Plan Status:Home with No Needs Medically Cleared to Leave:10/06/2017 Discharge Date:10/07/2017 12:47 PM CM D/C Disposition:Home, Routine, Self-Care ADT D/C Disposition:Home, Routine, Self-Care Projected Discharge Date:10/07/2017 12:47 PM Transportation at D/C:Family Discharge Delay Reason: Follow-Up Date:10/07/2017 12:47 PM Discharge Slot: Final Diagnosis:Mitral insufficiency S/P MVR Placement Information Patient Contact Information Contact Name:MARK Relationship: Address:[address] City:[place] Alternate Phone: State/Zip Code:[place] [address] Email: Financial Information Financial Class: Primary Plan Desc:MEDICARE INPATIENT Primary Plan Number:[id number] Secondary Plan Desc:[facility]LE [facility] Secondary Plan Number:[id number] Assessment Information [facility] CM Progress Note CM Note CM Note Notes: 77 year old male admitted for mitral insufficiency S/P MVR. Patient has a hx of CHF. No discharge needs per RN. Home with . Date Signed: 10/03/2017 03:56 PM Electronically Signed By:Karime Machado LCSW [facility] CM Progress Note CM Note CM Note Notes: 10/07/2017 Case Management Note Met w/pt. IM signed. Pt d/c today. is taking home. No case management needs identified. Pt did not feel home care was appropriate. Per Dr. Sage, pt is safe for independent d/c. Pt has follow up appointments scheduled for Mon and Tues this coming week. Case Management d/c poc: home independent w/follow up as directed. Date Signed: 10/07/2017 10:45 AM Electronically Signed By:Violette Patel RN Intervention Information Intervention Type:*IM-Signed Date of Service:10/07/2017 10:43 AM Patient Type:Inpatient Staff Member:VIKY Patel, Violette Hours:0.25 Discipline: Severity: Comment:
[2017-10-07] MEDS ORDERED: WARFARIN SODIUM 5 MG TAB PO SCH (16:00)
== END 2017-10-07 12:47 | disposition home or self-care (01) | DRG 217 ==
LOC: F2W 05:48 → F2N 05:48 → F2W 10-05 09:45
PROVIDERS: ADMIT Thoracic Surgery (Cardiothoracic Vascular Surgery); ATTEND Thoracic Surgery (Cardiothoracic Vascular Surgery)
PROC: 02UG0JZ Supplement Mitral Valve with Synthetic Substitute, Open Approach (ICD-10-PCS; principal; 2017-10-02 07:15)
PROC: 02BG0ZZ Excision of Mitral Valve, Open Approach (ICD-10-PCS; principal; 2017-10-02 07:15)
PROC: 02L70ZK Occlusion of Left Atrial Appendage, Open Approach (ICD-10-PCS; principal; 2017-10-02 07:15)
PROC: 5A1221Z Performance of Cardiac Output, Continuous (ICD-10-PCS; principal; 2017-10-02 07:15)
PROC: B2141ZZ Fluoroscopy of Right Heart using Low Osmolar Contrast (ICD-10-PCS; 2017-10-02 07:15)
PROC: B2111ZZ Fluoroscopy of Multiple Coronary Arteries using Low Osmolar Contrast (ICD-10-PCS; 2017-10-02 07:15)
PROC: 30233N1 Transfusion of Nonautologous Red Blood Cells into Peripheral Vein, Percutaneous Approach (ICD-10-PCS; 2017-10-03)
DX: I34.0 Nonrheumatic mitral (valve) insufficiency (principal); D62 Acute posthemorrhagic anemia; I42.0 Dilated cardiomyopathy; I10 Essential (primary) hypertension; G47.33 Obstructive sleep apnea (adult) (pediatric); D69.6 Thrombocytopenia, unspecified
CPT/HCPCS: 82947-QW; 86022-90; 97112-GP; 97116-GP; 97162-GP; 97165-GO; 97530-GP; 97535-GO; G8978-GP-CJ; G8979-GP-CI; G8980-GP-CI; G8987-GO-CJ; G8988-GO-CI; J0153; J0171; J0282; J0690; J1265; J1644; J1815; J2001; J2150; J2250; J2260; J2370; J2405; J2704; J2720; J2765; J2930; J3010; J7060; P9016; P9041; Q9967

== ENCOUNTER 2017-10-13 00:25 | Observation (INO) | payer OTHER ==
[2017-10-13] MEDS ORDERED: NS 1,000 ML IV ONE (00:34)
[2017-10-13] MEDS ORDERED: ASPIRIN 81 MG CHEWABLE TAB PO ONE (00:34)
--- NOTE | 2017-10-13 00:34 | EDPHY ---
H & P Stated Complaint: Mid sternal dull pain worst when he takes a deep breath HPI/ROS: HPI CHIEF COMPLAINT: Chest pain, chest discomfort HISTORY OF PRESENT ILLNESS: This patient very pleasant 77-year-old male, recently hospitalized for decompensated heart failure of which I saw him in the emergency room, and subsequently had a mitral valve corrective surgery for severe mitral regurg by Dr. Sage. This was done on October 02. He presents emergency room this evening for chest discomfort. He describes this discomfort is substernal dull ache however worse when he takes a deep breath in it is rather sharp. No history of DVT or PE. He does state that he is on Coumadin but is unsure of his INR. He denies radiation of pain. He states since 1829 this evening he has had this discomfort in his chest constant. Exacerbated by taking a deep breath in. No fever. No cough. No vomiting. 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 Denies drugs alcohol tobacco. Family History: Noncontributory. ROS REVIEW OF SYSTEMS: A comprehensive 10 point review of systems is otherwise negative aside from elements mentioned in the history of present illness. Exam Constitutional appears well nontoxic triage nursing summary reviewed, vital signs reviewed, awake/alert. Eyes normal conjunctivae and sclera, EOMI, PERRLA. HENT normal inspection, atraumatic, moist mucus membranes, no epistaxis, neck supple/ no meningismus, no raccoon eyes. Respiratory clear to auscultation bilaterally, normal breath sounds, no respiratory distress, no wheezing. Cardiovascular I do not hear murmur, no rub, rate normal, regular rhythm, no edema, distal pulses normal. Gastrointestinal soft, non-tender, no rebound, no guarding, normal bowel sounds, no distension, no pulsatile mass. Genitourinary no CVA tenderness. Musculoskeletal no midline vertebral tenderness, full range of motion, no calf swelling, no tenderness of extremities, no meningismus, good pulses, neurovascularly intact. Skin pink, warm, & dry, no rash, skin atraumatic. Neurologic awake, alert and oriented x 3, AAOx3, moves all 4 extremities equally, motor intact, sensory intact, CN II-XII intact, normal cerebellar, normal vision, normal speech. Psychiatric normal mood/affect. Heme/Lymph/Immune no lymphadenopathy. Differential Diagnosis: Includes but is not limited to in a particular order acute coronary syndrome, pericarditis, myocarditis, pulmonary embolism pneumothorax, CHF, pneumonia, aortic dissection, ruptured aorta Medical Decision Making: Plan for this patient rule out acute coronary syndrome and pulmonary embolism, full monitoring engineer, EKG, full-dose aspirin, gentle IV fluids, obtain EKG, chest x-ray possible CT angiogram of the chest. Re-evaluation: EKG interpretation by me on record in [employer] system. Impression time of EKG 01/31/2000 this is sinus rhythm rate of 84. 1st degree AV block present. OR interval 236. Left anterior fascicular block present. I do not appreciate acute ischemia specifically no ST elevation. No significant ST depression. Subtle T-wave abnormality in aVL. Bundle ivette block morphology. When I compare this to his old EKG dated 10/02/2017 it is similar in morphology. 1246: I did review this patient's recent operative note by Dr. Sage, including is cardiac catheterization that showed coronary artery disease but not flow limiting. No obstruction. 0151: Blood work is reviewed. This patient has a positive troponin. Additionally elevated lipase additionally elevated BNP. His EKG is nonischemic. In the setting of chest discomfort given his positive troponin he has been given full-dose aspirin. He received nitroglycerin to see if this improves his discomfort. He does not have any epigastric pain on exam is not vomiting. I think pancreatitis acute is unlikely. Additionally he has a positive D-dimer will proceed with CT angiogram to make sure does not have a pulmonary embolism however his Coumadin level is therapeutic. Reason for CT angiogram of the chest positive D-dimer positive troponin elevated BNP recent surgery chest discomfort and shortness of breath with pleuritic pain. This patient be admitted to the hospitalist service for chest pain with a positive troponin. EKG interpretation by me on record in [employer] system. Impression time of EKG 2:12 a.m., sinus rhythm rate of 81. Left anterior fascicular block present. No acute ischemic change appreciated. Unchanged from previous EKG. This is a repeat EKG. Source: Patient - Personal History Current Tetanus/Diphtheria Vaccine: Yes Current Tetanus Diphtheria and Acellular Pertussis (TDAP): Yes - Medical/Surgical History Hx Asthma: No Hx Chronic Respiratory Disease: No Hx Diabetes: No Hx Cardiac Disease: Yes Hx Renal Disease: No Hx Cirrhosis: No Hx Alcoholism: No Hx HIV/AIDS: No Hx Splenectomy or Spleen Trauma: No Other PMH: aPPY. sigmoid resection for divertic. mitral regurgitation surgery - Social History Smoking Status: Never smoked Constitutional: Initial Vital Signs Temperature (C) 36.8 C 10/13/17 00:26 Heart Rate 84 10/13/17 00:26 Respiratory Rate 16 10/13/17 00:26 Blood Pressure 124/69 H 10/13/17 00:26 O2 Sat (%) 93 10/13/17 00:26 O2 Delivery Mode Nasal Cannula O2 (L/minute) 2 Allergies/Adverse Reactions: No Known Allergies Allergy (Verified 10/13/17 00:31) Home Medications: Medication Instructions Recorded Aspirin EC [Aspirin EC 81 mg (*)] 81 mg PO DAILY 09/15/17 Carboxymethylcellulose 1% [Refresh 1 drop EACHEYE DAILY PRN 09/15/17 Celluvisc (*)] Cholecalciferol Vit D3 [Vitamin D3 2,000 units PO DAILY 09/15/17 2000 units tab (OTC)] Herbals/Supplements -Info Only 1 ea PO DAILY 09/15/17 Multivitamins [Multivitamin (*)] 1 each PO DAILY 09/15/17 Vitamin B Complex [B Complex] 1 each PO DAILY 09/15/17 Acetaminophen [Tylenol 325mg (*)] 325 - 650 mg PO TID PRN 10/13/17 Colchicine 0.6 mg PO DAILY #14 capsule 10/13/17 Furosemide [Lasix 20 MG (*)] 20 mg PO DAILY 10/13/17 Ibuprofen [Motrin (*)] 400 mg PO TID PRN #20 tab 10/13/17 Warfarin Sodium [Coumadin 2.5MG 2.5 mg PO SUTUWEFRSA@16 10/13/17 (*)] Warfarin Sodium [Coumadin 5MG (*)] 5 mg PO MOTH@16 10/13/17 Medical Decision Making - Data Points Laboratory Results: Laboratory Results 10/13/17 00:43 10/13/17 00:43 Medications Given: Discontinued Medications Aspirin (Aspirin) 324 mg PO EDNOW ONE Stop: 10/13/17 00:35 Last Admin: 10/13/17 00:44 Dose: 324 mg Aspirin Buffered (Aspirin Ec) 81 mg PO DAILY [facility] Stop: 04/11/18 11:14 Last Admin: 10/13/17 12:14 Dose: 81 mg Cholecalciferol (Vitamin D) 2,000 units PO DAILY CARMEN Stop: 04/11/18 11:14 Last Admin: 10/13/17 12:14 Dose: 2,000 units Furosemide (Lasix) 20 mg PO DAILY CARMEN Stop: 04/11/18 11:14 Last Admin: 10/13/17 12:14 Dose: 20 mg Sodium Chloride (Ns) 1,000 mls @ 0 mls/hr IV EDNOW ONE; Wide Open PRN Reason: Protocol Stop: 10/13/17 00:35 Last Admin: 10/13/17 00:44 Dose: 1,000 mls Multivitamins (Tab-A-Iris) 1 each PO DAILY [facility] Stop: 04/11/18 11:14 Last Admin: 10/13/17 12:14 Dose: 1 each Nitroglycerin (Nitrostat) 0.4 mg SL EDNOW ONE Stop: 10/13/17 01:51 Last Admin: 10/13/17 02:06 Dose: 0.4 mg Vitamin B Complex (Vitamin B Complex) 1 ea PO DAILY [facility] Stop: 04/11/18 11:14 Last Admin: 10/13/17 12:14 Dose: 1 ea Warfarin Sodium (Coumadin) 2.5 mg PO SUTUWEFRSA@16 [facility] Stop: 04/11/18 15:59 Last Admin: 10/13/17 16:27 Dose: 1.25 mg Departure - Departure Disposition: [facility] Clinical Impression: Elevated troponin, Elevated lipase Chest pain Qualifiers: Chest pain type: unspecified Qualified Code(s): R07.9 - Chest pain, unspecified Condition: Good
--- NOTE | 2017-10-13 00:38 | CPEKG ---
Heart Rate: 84 RR Interval: 714 P-R Interval: 236 QRSD Interval: 108 QT Interval: 380 QTC Interval: 450 P [place]: 11 QRS [place]: -64 T Wave [place]: 71 EKG Severity - ABNORMAL ECG - EKG Impression: SINUS RHYTHM EKG Impression: FIRST DEGREE AV BLOCK EKG Impression: LEFT ANTERIOR FASCICULAR BLOCK Electronically Signed By: Richard Pepper 15-Oct-2017 13:56:53
[2017-10-13 00:54] LABS: % IMMATURE GRANULYOCYTES 0.5 % (0.0-1.1); ABSOLUTE IMMATURE GRANULOCYTES 0.06 10^3/uL (0.00-0.10); ADD DIFF? NO; ADD MORPH? NO; ADD SCAN? NO; ATYPICAL LYMPHOCYTE FLAG 10 (0-99); FRAGMENT RBC FLAG 0 (0-99); HEMATOCRIT 34.1 % (40.0-51.0); HEMOGLOBIN 11.9 g/dL (13.7-17.5); LEFT SHIFT FLG 0 (0-99); LIPEMIA HEMOLYSIS FLAG 90 (0-99); MEAN CELL HEMOGLOBIN 31.8 pg (27.9-34.1); MEAN CELL HEMOGLOBIN CONCENTR. 34.9 g/dL (32.4-36.7); MEAN CELL VOLUME 91.2 fL (81.5-99.8); MEAN PLATELET VOLUME 8.5 fL (8.7-11.7); PLATELET CLUMPS FLAG 0 (0-99); PLATELET COUNT 278 10^3/uL (150-400); RED BLOOD CELL COUNT 3.74 10^6/uL (4.40-6.38); RED CELL DISTRIBUTION WIDTH 13.5 % (11.5-15.2)
[2017-10-13 01:04] LABS: INR 2.44 (0.83-1.16); PROTIME(PATIENT) 26.7 SEC (12.0-15.0)
[2017-10-13 01:05] LABS: ALANINE AMINOTRANSFERASE 35 IU/L (21-72); ALBUMIN 3.7 g/dL (3.5-5.0); ALKALINE PHOSPHATASE 80 IU/L (38-126); ANION GAP 10 mEq/L (8-16); APTT 46.8 SEC (23.0-38.0); ASPARTATE AMINOTRANSFERASE 27 IU/L (17-59); BILIRUBIN,TOTAL 0.3 mg/dL (0.1-1.4); BILIRUBIN-CONJUGATED 0.1 mg/dL (0.0-0.5); BILIRUBIN-UNCONJUGATED 0.2 mg/dL (0.0-1.1); CALCIUM 9.2 mg/dL (8.5-10.4); CARBON DIOXIDE 30 mEq/l (22-31); CHLORIDE 102 mEq/L (97-110); CREATININE 1.2 mg/dL (0.7-1.3); GLOMERULAR FILTRATION RATE 59; GLUCOSE 120 mg/dL (70-100); MAGNESIUM 2.1 mg/dL (1.6-2.3); POTASSIUM 4.1 mEq/L (3.5-5.2); SODIUM 142 mEq/L (134-144); TOTAL PROTEIN 6.5 g/dL (6.3-8.2)
[2017-10-13 01:20] LABS: CREATINE KINASE-MB FRACTION 1.64 ng/mL (0.00-3.19); TROPONIN I 0.122 ng/mL (0.000-0.034)
[2017-10-13] MEDS ORDERED: IOPAMIDOL (ISOVUE 370) 100 ML BTL IV ONE (01:42)
[2017-10-13] MEDS ORDERED: NITROGLYCERIN 0.4 MG BTL SL ONE (01:50)
--- NOTE | 2017-10-13 02:14 | CPEKG ---
Heart Rate: 81 RR Interval: 741 P-R Interval: 216 QRSD Interval: 100 QT Interval: 416 QTC Interval: 483 P [place]: 58 QRS [place]: -64 T Wave [place]: 50 EKG Severity - ABNORMAL ECG - EKG Impression: SINUS RHYTHM EKG Impression: LEFT ANTERIOR FASCICULAR BLOCK EKG Impression: BORDERLINE PROLONGED QT INTERVAL Electronically Signed By: Richard Pepper 15-Oct-2017 13:56:53
[2017-10-13 03:39] VITALS: RESP 20
[2017-10-13] MEDS ORDERED: ONDANSETRON 4 MG/2 ML VIAL IVP PRN (04:21)
[2017-10-13] MEDS ORDERED: HYDROCODONE/APAP 5/325 TAB PO PRN (04:21)
[2017-10-13] MEDS ORDERED: ACETAMINOPHEN 325 MG TAB PO PRN (04:21)
--- NOTE | 2017-10-13 10:12 | ASMTCASEMG ---
Living Arrangements What is your living Answers: With Spouse arrangement? Who do you live with? Type Of Residence What kind of residence do Answers: House you live in? Discharge Plan Comments Coordination Status Comments Notes: Pt is a 77 y/o man admitted for chest pain and elevated trops. Pt will most likely d/c w/ supportive when medically stable. No therapies ordered at this time. CM available for d/c needs. Date Signed: 10/13/2017 10:11 AM Electronically Signed By:LATOYA Buckley
--- NOTE | 2017-10-13 10:12 | PDGENHP ---
History and Physical - Chief Complaint chest pain - History of Present Illness Source - patient provides history and appears reliable. HPI - Pleasant 77 yo M with pmhx significant for systolic CHF, nonischemic cardiomyopathy with recent MV repair. nonocclusive CAD who presents to the ED with complaints of persistent substernal chest pain worse with inspiration. Patient describes pain as sharp, intermittent. He denies any acute SOB/fever/ chills/cough. patient without any nausea/vomiting/diarrhea. Pt reports sx approximately 1830 around dinner time. denies any reflux In the ED, patient was given SL nitroglycerin x 1 without any changes to his chest pain. History Information - Allergies/Home Medication List Allergies/Adverse Reactions: No Known Allergies Allergy (Verified 10/13/17 00:31) Home Medications: Aspirin EC [Aspirin EC 81 mg (*)] 81 mg PO DAILY 09/15/17 [Last Taken 10/12/17] Carboxymethylcellulose 1% [Refresh Celluvisc (*)] 1 drop EACHEYE DAILY PRN 09/15 [Last Taken Unknown] Cholecalciferol Vit D3 [Vitamin D3 2000 units tab (OTC)] 2,000 units PO DAILY [Last Taken 10/12/17] Herbals/Supplements -Info Only 1 ea PO DAILY 09/15/17 [Last Taken 09/29/17] Multivitamins [Multivitamin (*)] 1 each PO DAILY 09/15/17 [Last Taken 10/12/17] Vitamin B Complex [B Complex] 1 each PO DAILY 09/15/17 [Last Taken 10/12/17] Acetaminophen [Tylenol 325mg (*)] 325 - 650 mg PO TID PRN 10/13/17 [Last Taken 10/12/17] Furosemide [Lasix 20 MG (*)] 20 mg PO DAILY 10/13/17 [Last Taken 10/12/17] Warfarin Sodium [Coumadin 2.5MG (*)] 2.5 mg PO SUTUWEFRSA@10/13/17 [Last Taken 10/11/17] Warfarin Sodium [Coumadin 5MG (*)] 5 mg PO MOTH@10/13/17 [Last Taken 10/12/17 ] I have personally reviewed and updated: family history, medical history, social history, surgical history Past Medical History: Mitral valve regurgitation. Diverticulitis. Nonocclusive CAD on cardiac cath 09/2017 - Past Medical History hyperlipidemia - Surgical History Reports: appendectomy Additional surgical history: sigmoid colectomy. MV repair - Family History Additional family history: patient is not familiar with his family history. - Social History Smoking Status: Never smoked Alcohol Use: None Drug Use: None Additional social history: avid runner. 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 Review of Systems Review of Systems: ROS: 10pt was reviewed & negative except for what was stated in HPI & below Physical Exam Physical Exam: Selected Entries 10/13/17 10/13/17 00:26 03:35 Blood Pressure Automatic Method Heart Rate 84 83 Respiratory 16 20 Rate O2 Sat (%) 93 91 L Temperature (C) 36.8 C 36.6 C Blood Pressure 124/69 H 123/70 H Mean Arterial 87 87 Pressure (MAP) O2 Delivery Room Air Room Air Mode Blood Pressure Right Source Upper Arm Heart Rate/ Monitor Temperature Oral Oral Source Heart Rate Heart Rate/ Source Monitor Temp Pulse Resp BP Pulse Ox 37.1 C 80 20 111/55 L 92 10/13/17 08:00 10/13/17 08:00 10/13/17 08:00 10/13/17 08:00 10/13/17 08:00 O2 (L/minute) 2 Constitutional: no apparent distress, appears nourished, not in pain Eyes: other (EOMI grossly intact. ) Ears, Nose, Mouth, Throat: moist mucous membranes, No poor dentition Cardiovascular: regular rate and rhythym, systolic murmur, No edema Peripheral Pulses: 1+: dorsalis-pedis (R), dorsalis-pedis (L) Respiratory: no respiratory distress, no rales or rhonchi, clear to auscultation Gastrointestinal: normoactive bowel sounds, soft, non-tender abdomen, no palpable masses Genitourinary: no bladder tenderness, No allen in urethra Skin: warm, normal color, No rash Musculoskeletal: full muscle strength, other (moves all extremities. ), No generalized weakness Neurologic: AAOx3, sensation intact bilaterally, other (grossly nonfocal exam. ) , No facial droop Psychiatric: not anxious, not encephalopathic, thought process linear, flat affect (patient fatigued.), No anxious, No depressed, No poor insight, No poor judgement, No poor memory Lab Data & Imaging Review 10/13/17 00:43 10/13/17 00:43 WBC 12.63 10^3/uL (3.80-9.50) H 10/13/17 00:43 RBC 3.74 10^6/uL (4.40-6.38) L 10/13/17 00:43 Hgb 11.9 g/dL (13.7-17.5) L 10/13/17 00:43 Hct 34.1 % (40.0-51.0) L 10/13/17 00:43 MCV 91.2 fL (81.5-99.8) 10/13/17 00:43 MCH 31.8 pg (27.9-34.1) 10/13/17 00:43 MCHC 34.9 g/dL (32.4-36.7) 10/13/17 00:43 RDW 13.5 % (11.5-15.2) 10/13/17 00:43 Plt Count 278 10^3/uL (150-400) 10/13/17 00:43 MPV 8.5 fL (8.7-11.7) L 10/13/17 00:43 Neut % (Auto) 79.8 % (39.3-74.2) H 10/13/17 00:43 Lymph % (Auto) 10.0 % (15.0-45.0) L 10/13/17 00:43 [place] % (Auto) 6.9 % (4.5-13.0) 10/13/17 00:43 Eos % (Auto) 2.5 % (0.6-7.6) 10/13/17 00:43 Baso % (Auto) 0.3 % (0.3-1.7) 10/13/17 00:43 Nucleat RBC Rel Count 0.0 % (0.0-0.2) 10/13/17 00:43 Absolute Neuts (auto) 10.08 10^3/uL (1.70-6.50) H 10/13/17 00:43 Absolute Lymphs (auto) 1.26 10^3/uL (1.00-3.00) 10/13/17 00:43 Absolute Monos (auto) 0.87 10^3/uL (0.30-0.80) H 10/13/17 00:43 Absolute Eos (auto) 0.32 10^3/uL (0.03-0.40) 11 00:43 Absolute Basos (auto) 0.04 10^3/uL (0.02-0.10) 10/13/17 00:43 Absolute Nucleated RBC 0.00 10^3/uL (0-0.01) 10/13/17 00:43 Immature Gran % 0.5 % (0.0-1.1) 10/13/17 00:43 Immature Gran # 0.06 10^3/uL (0.00-0.10) 10/13/17 00:43 PT 26.7 SEC (12.0-15.0) H D 10/13/17 00:43 INR 2.44 (0.83-1.16) H 10/13/17 00:43 APTT 46.8 SEC (23.0-38.0) H 10/13/17 00:43 D-Dimer 4.59 ug/mLFEU (0.00-0.50) H 10/13/17 00:43 Sodium 142 mEq/L (134-144) 10/13/17 00:43 Potassium 4.1 mEq/L (3.5-5.2) 10/13/17 00:43 Chloride 102 mEq/L (97-110) 10/13/17 00:43 Carbon Dioxide 30 mEq/l (22-31) 10/13/17 00:43 Anion Gap 10 mEq/L (8-16) 10/13/17 00:43 BUN 33 mg/dL (7-23) H 10/13/17 00:43 Creatinine 1.2 mg/dL (0.7-1.3) 10/13/17 00:43 Estimated GFR 59 10/13/17 00:43 Glucose 120 mg/dL (70-100) H 10/13/17 00:43 Calcium 9.2 mg/dL (8.5-10.4) 10/13/17 00:43 Magnesium 2.1 mg/dL (1.6-2.3) 10/13/17 00:43 Total Bilirubin 0.3 mg/dL (0.1-1.4) 10/13/17 00:43 Conjugated Bilirubin 0.1 mg/dL (0.0-0.5) 10/13/17 00:43 Unconjugated Bilirubin 0.2 mg/dL (0.0-1.1) 10/13/17 00:43 AST 27 IU/L (17-59) 10/13/17 00:43 ALT 35 IU/L (21-72) 10/13/17 00:43 Alkaline Phosphatase 80 IU/L (38-126) 10/13/17 00:43 Creatine Kinase < 20 IU/L (0-224) 10/13/17 00:43 CK-MB (CK-2) Fraction 1.64 ng/mL (0.00-3.19) 10/13/17 00:43 Troponin I 0.104 ng/mL (0.000-0.034) H 10/13/17 06:17 NT-Pro-B Natriuret Pep 1050 pg/mL (0-450) H 10/13/17 00:43 Total Protein 6.5 g/dL (6.3-8.2) 10/13/17 00:43 Albumin 3.7 g/dL (3.5-5.0) 10/13/17 00:43 Lipase 2271 IU/L (23-300) H 10/13/17 00:43 Imaging Review: Contrast-Enhanced CT Scan of the Chest (CT Pulmonary Artery Angiography) Clinical History: 77-year-old male who underwent a mitral valvuloplasty on October 02, 2017, presenting to the ED with an elevated D-dimer (on Coumadin), an elevated BNP, an elevated serum troponin, and an elevated lipase level, with some pleuritic chest pain. Rule out PE. Technique: The patient received 90 mL of IV [id number]-[id number] without complication, and a multidetector helical CT scan was obtained from the base of the neck inferiorly to the upper abdomen during peak arterial phase, with images reformatted at 1.50 mm and overlapping 4/3 mm increments, and reviewed at a variety of window and level settings. Multiplanar reconstructions are reviewed on the workstation. DFOV: 34.3 cm. Dose reduction protocol was used. Comparison Studies: Chest radiography from earlier this morning at 12:57 a.m, chest radiography dated October 06, 2017, and a preoperative CT angiography of the chest dated September 15, 2017. Findings: CT Pulmonary Artery Angiography: The main pulmonary artery, the main right and main left pulmonary arteries, and the first and second order pulmonary artery segments appear contrast-opacified, with no filling defect to suggest acute or chronic thromboemboli. There is cardiomegaly, although there is no interventricular septal bowing or reflux of contrast into the intrahepatic IVC. The patient has had recent open heart surgery and a mitral valvuloplasty. There is a small inferior pericardial effusion. There is a normal anatomic arrangement of the great vessels off the aortic arch. There is no evidence of a thoracic aortic aneurysm or dissection, and the visualized upper abdominal aorta is normal in size. Contrast-Enhanced CT Chest: There is a small amount of residual subcutaneous emphysema along the lateral right chest wall on the side where the patient had a previous chest tube removed. There is no pneumothorax or pneumomediastinum. There is a mild to moderate right-sided pleural effusion with some right lower lobe subsegmental atelectasis. There is some fluid tracking into the right major fissure. There is some mild pulmonary venous hypertension. Minimal ground-glass attenuation is seen in the right upper lobe. There is some minimal atelectasis in the inferior right middle lobe, and also minimally in the left lower lobe. The above features may represent some low level-fluid overload, especially given the concurrent elevated serum BNP, although there is no cardiogenic pulmonary edema, as was seen on the previous chest CT scan. There is a 9.7 x 9.1 mm stable well- circumscribed hypodense non-calcified nodule in the lower pole of the right lobe of the thyroid gland, likely-benign, however, followup ultrasound in 6 months could be considered to assure stability. The osseous structures are age-appropriate with some degenerative features of the thoracic spine. The visualized upper abdomen is unremarkable, including the visualized portions of the pancreas, although given the patient's elevated serum lipase level, an early pancreatitis is not excluded. There is no peripancreatic inflammation or fluid collection observed. There is some mild hyperplasia of the left adrenal gland. The visualized aspects of the liver , contracted gallbladder, spleen, and kidneys are unremarkable given the arterial phase of contrast enhancement. The stomach is mildly fluid-distended. I provided a preliminary interpretation to Wen, the charge nurse in the ED, who will in turn convey the information to Dr. Zen Delacruz. I also contacted Dr. Ronnie Agudelo at 10:00 am on 10/13/17 to convey the additional information regarding the subcentimeter right thyroid nodule. Impression: 1. There is no CT evidence of pulmonary artery thromboemboli. 2. Cardiomegaly with a recent mitral valvuloplasty and some coronary artery atherosclerotic calcifications with mild pulmonary venous hypertension and the presence of a [id number] right pleural effusion with an elevated serum BNP raises the possibility of some mild fluid overload. There is no evidence of the prema cardiogenic pulmonary edema, which had been present on a preoperative chest CT scan of September 15, 2017. 3. There is a small inferior pericardial effusion. 4. There is no CT evidence of pancreatitis, although the patient does have an elevated serum lipase level, which may be indicative of a biochemical pancreatitis. 5. There is a subcentimeter right thyroid lobe nodule which is stable from the prior CT exam. Consider followup ultrasound of this likely-benign finding in 6 months. Visualized and Interpreted Chest x-ray results: Yes Chest X-Ray results: other (cardiomegaly. improved LLL consolidation) EKG Interpretation: Positive for: normal sinsus rhythm EKG additional interpertation: NSR 1st degree AVB. LAFB. no acute ST changes. QT 380. Assessment & Plan Assessment: 1. chest pain - pleuritic in nature. CTA neg for PE. troponin mildly elevated but patient with recent valve repair. recent cath done a few weeks ago showing nonobstructive coronary disease. 2. elevated troponin - minimall elevated. will trend. no acute changes on ekg. patient with some renal insufficiency and recent mitral valve repair likely contributing. cath showing nonobstructive coronary disease. on coumadin and therapeutic. 3. elevated lipase - less than 3 times upper limit of normal and patient asymptomatic. 4. chronic systolic CHF compensated - last EF 40-45%. patient with small pleural effusion with recent history of chest tube/valve replacement that appears improving. will not increase diuresis resume home dosing. 5. CAD nonocclusive on recent cardiac cath. 6. chronic anticoagulation - for recent valve repair. therapeutic. 7. anemia - no evidence of active bleeding. monitor hh. 8. leukocytosis - patient afebrile. no evidence of pneumonia. pt without other complaints for possible infectious sources. 9. hyperglycemia - mildly elevated and nonfasting lab. continue to monitor. no hx DM II. FEN - po hydration. no IVF> electrolyte replacement prn. cardiac diet. PPX - on coumadin. COR - FULL Dispo - admit for observation.
[2017-10-13] MEDS ORDERED: CARBOXYMETHYLCELLULOSE 1% 0.4 ML DROPERETTE EACHEYE PRN (11:13)
[2017-10-13] MEDS ORDERED: MULTIVITAMINS 1 EACH TAB PO SCH (11:15)
[2017-10-13] MEDS ORDERED: FUROSEMIDE 20 MG TAB PO SCH (11:15)
[2017-10-13] MEDS ORDERED: ASPIRIN EC 81 MG TAB PO SCH (11:15)
[2017-10-13] MEDS ORDERED: CHOLECALCIFEROL VIT D3 2,000 UNITS TAB/CAP PO SCH (11:15)
[2017-10-13] MEDS ORDERED: VITAMIN B COMPLEX 1 EA CAP/TAB PO SCH (11:15)
[2017-10-13] MEDS ORDERED: IBUPROFEN 200 MG TAB PO PRN (13:45)
[2017-10-13] MEDS ORDERED: WARFARIN SODIUM 2.5 MG TAB PO SCH (16:00)
--- NOTE | 2017-10-13 16:10 | PDDCSUM ---
Discharge Summary Discharge Summary: Dates of service 10/12-10/13/17 Consultations: cardiology Procedures performed: echo Hospital course by problem: # chest pain: had recent cath showing non obstructive CAD, recent valvular surgery, no PE by CTA. Most likely this represents post procedural pericarditis given small pericardial effusion noted on echo. Pain greatly improved. Plan to dc home with short course of ibuprofen and colchicine. # VHD: with hx of leighton MR now s/p repair, as above, Patient started on coumadin post operatively by Dr. Sage with a plan to continue for 2-3 months Dc home f/u with CT surgery/PCP > 35 min spent in dc more than half in coordination of care
--- NOTE | 2017-10-13 16:14 | ECHO ---
[email or web address] [address] [address] Main: [phone] Fax: Transthoracic Echocardiogram Name: CHELE FUNES MR#: [id number] Study Date: 10/13/2017 Study Time: 02:46 PM Date of : 1940 Age: 77 year(s) Height: 177.8 cm (70 in.) Weight: 73.94 kg (163 lb.) BSA: 1.91 m2 Gender: Male Examination: Limited Echo Indication: new chest pain; r/o pericardial effusion Image Quality: Adequate Contrast: Requested by: Maria T Monroy BP: 92 mmHg/57 mmHg Heart Rate: Rhythm: Indication: new chest pain; r/o pericardial effusion Procedure Staff Galley Hand: Kaylene Kaufman Reading Physician: aMcario Salazar Requesting Provider: Conclusions: Limited echocardiogram to evaluate for presence of a pericardial effusion in this patient status post mitral valve repair . There is a small circumferential pericardial effusion . The left ventricle is normal in size with low normal estimated ejection fraction at 50-55%. Interventricular septal motion is consistent with the patient's post pericardiotomy state. The patient has had a previous mitral valve repair. Mitral leaflets appear to be thickened. No vegetations are noted. Measurements: Chambers Valvular Assessment AV/MV Valvular Assessment TV/PV Normal Normal Normal Name Value Range Name Value Range Name Value Range IVSd (2D): 0.8 cm (0.6 cm-1.1 MV meanP mmHg ( - ) cm) LVDd (2D): 5.2 cm (4.2 cm-5.9 cm) LVDs (2D): 4.1 cm (2.1 cm-4 cm) LVPWd (2D): 1.0 cm (0.6 cm-1 cm) Visual EF: 40 % Continued Measurements: Valvular Assessment AV/MV Name Value MV VTI: 42.20 cm Findings: Left Ventricle: Normal size left ventricle. Mildly reduced systolic LV function. The ejection fraction is visually Patient: CHELE FUNES Study Date: 10/13/2017 Page 1 of 2 02:46 PM estimated to be 40 %. Mitral Valve: S/P mitral valve repair. Gradient across the valve 5mmHg.. Pericardium: Small pericardial effusion. (No Signature Object) Patient: CHELE FUNES Study Date: 10/13/2017 Page 2 of 2 02:46 PM [id number]
[2017-10-13 16:20] VITALS: BP 95/60; PULSE 84; TEMP 98.8; O2SAT 92
--- NOTE | 2017-10-13 22:45 | GCON ---
[f rep st] CONSULTATION CARDIOLOGY CONSULTATION We were asked by Dr. Agudelo to evaluate this patient for his respirophasic chest pain. HISTORY OF PRESENT ILLNESS: The patient is a 77-year-old male, with a past medical history of mitral regurgitation, who has proceeded to recent mitral valve annuloplasty ring repair. He presented back in August to the [facility] emergency department with 2 weeks of increasing exercis e intolerance and was found to have severe MR and valvular CHF with systolic CHF. He proceeded to [facility] on 10/02/2017. He underwent a right mini thoracotomy with mitral valve repair and annuloplasty ring. He was discharged on 10/07/2017, and was recuperating at home. On 10/12/2017, he had eaten dinner and noted a respirophasic discomfort in his left upper sternal reg ion. Since his surgery, he has had more right-sided discomfort, so this was unusual for him. Sympto ms were moderate in intensity and only worsened with deep inspiration. He did not notice any positio nal component. There was no associated dyspnea or diaphoresis or radiation of his discomfort. Throu gh the night symptoms persisted and, therefore, at approximately midnight he presented to the emergen cy department for further evaluation. He proceeded to EKGs that were stable without any ischemic ernesto nges. His chest CTA showed no evidence of thromboemboli. He did have a [id number] right pleu ral effusion. Since admission, he reports the pain is only about a 1/10 on deep inspiration. He is unsure what ult imately achieved his pain control, but he is more comfortable than upon his presentation last night. REVIEW OF SYSTEMS: As per HPI. A complete 10-point review of systems was obtained and is negative e xcept for what is dictated. MEDICATIONS: Include warfarin, vitamin B complex, multivitamin, furosemide 20 mg p.o. daily, vitamin D3, Refresh Celluvisc eyedrops, aspirin 81 mg p.o. daily, Tylenol. ALLERGIES: No known drug allergies. FAMILY HISTORY: Father's family history is unknown. His grandmother had a stroke. PAST SURGICAL HISTORY: 1. Appendectomy. 2. Sigmoid colectomy. 3. Mitral valve repair. PAST MEDICAL HISTORY: 1. Nonischemic cardiomyopathy. 2. Minimal coronary artery disease on left heart catheterization. 3. Severe MR. SOCIAL HISTORY: Patient is . He denies any alcohol or tobacco use. PHYSICAL EXAMINATION: VITAL SIGNS: BP of 92/57, heart rate of 92, O2 saturation 94% on room air, te mp of 98.4 degrees Fahrenheit. GENERAL: He is a very pleasant male, in no apparent distress. HEENT : Head is normocephalic, atraumatic. Sclera are without any scleral icterus. Mucous membranes are moist. HEART: Regular rate and rhythm with a 1/6 systolic ejection murmur. LUNGS: Clear to auscul tation. ABDOMEN: Soft with normoactive bowel sounds. SKIN: Warm and dry. PSYCHIATRIC: Normal mo od and affect. 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 09/15/2017: Left heart catheterization demonstrated minimal plaque. LABORATORY DATA: CBC with WBC 12.63, hemoglobin 11.9, hematocrit 34.1, platelet count of 278. BMP w ith sodium 142, potassium 4.1, chloride 102, CO2 30, BUN 33, creatinine 1.2, glucose of 120. Troponi n 0.122, followed by 0.104. NT proBNP of 1050. I have discussed patient's care with Dr. gAudelo. Chest x-ray reviewed, shows mild cardiac cardiom egaly without overt failure. Present. IMPRESSION AND PLAN: The patient is a 77-year-old male, admitted through the emergency department fo r new onset of pleuritic chest pain. 1. Chest pain. Based on echocardiogram, which shows mild effusion, this is likely pericarditic in n ature. He will be started on ibuprofen 400 mg p.o. 3 times daily. He is advised to only use this fo r a short duration of approximately 3-5 days. He will also be started on concomitant colchicine ther apy. We will put him on gastrointestinal prophylaxis with proton pump inhibitor. 2. Elevated troponin. This is in the setting of recent cardiac surgery. This is not worrisome for cardiac ischemia at this point. 3. Coronary artery disease. He had minimal coronary artery disease on left heart catheterization. He may continue aspirin therapy as an outpatient. /[id number]/MODL
[2017-10-16] MEDS ORDERED: WARFARIN SODIUM 5 MG TAB PO SCH (16:00)
== END 2017-10-13 16:55 | disposition home or self-care (01) ==
LOC: F2W 03:22
PROVIDERS: ADMIT Family Medicine; ATTEND Family Medicine
DX: I31.9 Disease of pericardium, unspecified (principal); E86.9 Volume depletion, unspecified; E78.5 Hyperlipidemia, unspecified; I50.22 Chronic systolic (congestive) heart failure; Z79.01 Long term (current) use of anticoagulants; D64.9 Anemia, unspecified; I44.0 Atrioventricular block, first degree
CPT/HCPCS: 71010; 71275; 93005; 93308; 96360; 99285; G0378; Q9967

== ENCOUNTER → 2017-10-16 | Outpatient (CLI) | payer OTHER | LOC: FIMAGING 15:13 | PROVIDERS: ATTEND Thoracic Surgery (Cardiothoracic Vascular Surgery) | DX: Z98.890 Other specified postprocedural states (principal); Z95.2 Presence of prosthetic heart valve ==

== ENCOUNTER → 2018-04-04 | Outpatient (CLI) | payer OTHER | LOC: BHFA 11:30 | PROVIDERS: ATTEND Internal Medicine Cardiovascular Disease | DX: I05.9 Rheumatic mitral valve disease, unspecified (principal) ==

== ENCOUNTER → 2019-01-18 | Outpatient (CLI) | payer OTHER | LOC: FIMAGING 09:13 | PROVIDERS: ATTEND Internal Medicine | DX: E04.1 Nontoxic single thyroid nodule (principal) ==